=== PATIENT | male | born 1985 | race Caucasian/White ===

== ENCOUNTER 2021-12-06 12:01 | Outpatient (REF) | payer OTHER, SELFPAY ==
[2021-12-06 13:52] LABS: Hematocrit 45.2 % (42.0-52.0); Mean Corpuscular HGB Conc 35.4 g/dl (31.0-36.0); Mean Corpuscular Hemoglobin 30.5 pg (27.0-33.0); Mean Corpuscular Volume 86.1 fL (80.0-98.0); Mean Platelet Volume 9.6 fL (9.4-12.4); Platelet Count 208 X10*3/uL (160-400); Red Blood Count 5.25 X10*6/uL (4.60-5.80); Red Cell Distribution Width 12.2 % (11.0-16.0); White Blood Count 6.2 X10*3/uL (4.8-10.8)
[2021-12-06 14:01] LABS: Alanine Aminotransferase 20 U/L (0-40); Albumin Level 4.9 g/dL (3.5-5.0); Alkaline Phosphatase 67 U/L (39-117); Anion Gap 14 (12-20); Aspartate Amino Transferase 16 U/L (5-37); Bilirubin Total 1.1 mg/dL (0.0-1.0); Blood Urea Nitrogen 12 mg/dL (9-16); Calcium 10.2 mg/dL (8.4-10.2); Carbon Dioxide 29 mmol/L (22-29); Chloride 102 mmol/L (96-108); Cholesterol 202 mg/dL; Estimated Glomerular Filt Rate > 60; Glucose Fasting 92 mg/dL (60-99); HDL Cholesterol 35 mg/dL; LDL Cholesterol Calculated 125 mg/dl; Magnesium 2.1 mg/dL (1.6-2.6); Potassium 4.5 mmol/L (3.3-5.1); Sodium 140 mmol/L (135-145); Total Protein 7.4 g/dL (6.5-8.0); Triglycerides 213 mg/dL
[2021-12-06 14:24] LABS: TSH reflex Free T4 1.33 uIU/mL (0.32-4.0)
[2021-12-06 14:45] LABS: Folate 18.5 ng/mL (> or = 4.0); Vitamin B12 258 pg/mL (200-900)
== END 2021-12-06 12:02 | disposition home or self-care (01) ==
LOC: HO.HMGCLDS 12:01
PROVIDERS: Visit Provider Internal Medicine
DX: Z00.00 Encounter for general adult medical examination without abnormal findings (principal); M54.50 Low back pain, unspecified; M79.659 Pain in unspecified thigh
CPT/HCPCS: 36415; 80053; 80061; 82607; 82746; 83735; 84443; 85027

== ENCOUNTER 2024-03-14 14:01 | Outpatient (AMB) | payer OTHER, SELFPAY ==
[2024-03-14 14:23] VITALS: BP 120/78; PULSE 59; O2SAT 98; BMI 30.6
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
== END 2024-03-14 15:28 | disposition home or self-care (01) ==
PROVIDERS: PCP Internal Medicine; Visit Provider Internal Medicine
DX: Z00.00 Encounter for general adult medical examination without abnormal findings (principal); M25.511 Pain in right shoulder; K22.2 Esophageal obstruction; M54.2 Cervicalgia
CPT/HCPCS: 99396

== ENCOUNTER 2024-06-03 10:45 | Outpatient (REF) | payer OTHER, SELFPAY | END 2024-06-03 10:46 | disposition home or self-care (01) | LOC: HO.HMGCX 10:45 | PROVIDERS: PCP Internal Medicine; Visit Provider Internal Medicine | DX: M25.511 Pain in right shoulder (principal); M54.2 Cervicalgia | CPT/HCPCS: 72040; 73030 ==

== ENCOUNTER 2024-12-08 12:15 | Outpatient (AMB) | payer OTHER, SELFPAY ==
--- NOTE | 2024-12-08 12:40 | MHC.OFFWIV ---
Intake Vital Signs 12/08/24 12:43 Height 5 ft 9 in Weight 204 lb BMI 30.1 BP 124/82 Blood Pressure Location Rt brachial Position Sitting Pulse 83 Pulse Source Pulse Oximeter Temp 98.1 F Temp Source Oral Pulse Oximetry (%) 98 Oxygen Delivery Method Room Air Intake Visit Reasons: EP rash not improving with prednisone/benadryl Intake Note: Patient here for rash on chest and back that has been present for about a week or so. Patient Tobacco Use Status: Never used Tobacco Allergies No Known Allergies Allergy (Verified 12/08/24 12:52) Do you need a note to return to daycare/school/sports/work: Yes HPI HPI Comments History of Present Illness Details History of Present Illness - The patient is a 39 year old male presenting with an itchy rash x 3 days. - The patient reports abnormal fatigue and dizziness for 2-3 days prior to rash development. Noticed his urine was dark that day. - Patient denies new medication use, antibiotics, NSAIDS, or other dietary changes. Does not drink alcohol. - Went to an Urgent Care, where he was told exam was normal, little fluid in left ear which could have caused the dizzyines. The next AM, 2 days ago, the rash broke out. He went to [facility] ED 2 days ago. - Later that day, he went to the gym and utilizing a steam room. Denies any extreme weight lifting or very strenuous workout. - Emergency department findings included elevated bilirubin and liver enzymes, and neutrophil levels. Liver US was normal and pt was told to follow up with his PCP. - Previous management included every 4 hours 25mg Benadryl, and 50mg prednisone x 5 days, he is on day 2 with no improvement in the rash or itching. - Despite current medications, pruritus persists; the sensation is described as sunburn-like and uncomfortable. Physical Exam General: Cooperative, healthy appearing, comfortable, no acute distress and well developed Orientation: Patient oriented x3 Limitations: No limitations Head: Normal to inspection Ears: Hearing grossly normal bilaterally Nose: Normal External nose present Face and sinus: Normal facial exam Eyes: Appearance normal, both eyes and all related structures; no scleral icterus Neck: Normal visual inspection and Yes full ROM Respiratory: Normal respiratory effort and able to speak in complete sentences. Skin: neck, chest, back, BL LE and BL UE has macular rash, slightly warm, no papules, vesicles or ecchymosis. no jaundice Neuro: Patient oriented x3 Extremities: Normal to inspection [facility] Medical History Paresthesia of bilateral legs Lower back pain Thigh pain Inguinal hernia Umbilical hernia Annual physical exam Allergic rhinitis Eosinophilic esophagitis Surgical History History of hernia surgery Family History Father No problems noted. Mother Heart attack Sister Substance use disorder Social History Housing: House Patient Tobacco Use Status: Never used Tobacco e-Cigarette/Vaping Use: Never Used Second Hand Smoke Exposure: Yes service: No Current occupational status: employed Cognitive needs: No Hearing needs: No Vision needs: No Review of Systems Const All systems reviewed & are unremarkable except as noted in HPI and below Physical Exam Vital Signs: Last Vital Signs Temp 98.1 F 12/08/24 12:43 Pulse 83 12/08/24 12:43 BP 124/82 12/08/24 12:43 Pulse Ox 98 12/08/24 12:43 Oxygen Delivery Method Room Air 12/08/24 12:43 BMI result Body Mass Index 30.1 Assessment & Plan Assessment & Plan (1) Elevated bilirubin: Code(s): R17 - Unspecified jaundice Plan Per records sent to us by [facility], the US in ED was normal but based on the patients dark urine, sudden elevated bili of 3.8 (and lft's) and intense pruritus, and pred/benadryl not working at all, suspect cholestasis, will order CT abd/pelvis and start on bile acid sequestrant. Patient does have follow up with his PCP on 12/13. After a long discussion, he did think that the prednisone might be helping a little bit so he wants to continue taking that medication. Orders: Orders CT abdomen pelvis w IV con Today R17 - Unspecified jaundice Medications: New hydroxyzine HCl 25 mg PO Q8H PRN 30 tabs 0RF itching cholestyramine (with sugar) 4 gram administer w/meal; avoid other meds within 1hr before or 4-6hr after dose 4 grams PO TID 368.76 grams 0RF Coding Level of Care Code Est Pt Level 4 (69672) Diagnoses Elevated bilirubin R17
[2024-12-08 12:43] VITALS: BP 124/82; PULSE 83; TEMP 36.7; O2SAT 98; BMI 30.1
--- OUTSIDE RECORDS SUMMARY | 2024-12-08 13:08 | XMS_ITS | Clinical Summary ---
Author Organization [facility] Address [address] [place] [address] Phone Care Team Providers Care Basket Sorter Name Role Phone Taylor Brownlee MD Primary Care Provider [phone] Allergies Active Allergy Reactions Criticality Noted Date Comments Egg Cough Low 09/09/2017 Other reaction(s): Cough Medications predniSONE (DELTASONE) 50 mg tablet Take 1 tablet (50 mg total) by mouth 1 (one) time each day for 5 days. 5 each 12/06/2024 5 Active Active Problems No known active problems Encounters Date Type Department Care Team Description 12/06/2024 7:32 AM EDT - 12/06/2024 11:46 AM EDT [facility] Emergency [address] [place] [address] Hardy Ingram MD Rash (Primary Dx); Abnormal liver enzymes; Viral illness; Weakness Discharge Disposition: Home or Self Care from Last 3 Months Surgical History Surgery Date Site/Laterality Comments UPPER GASTROINTESTINAL ENDOSCOPY PROCEDURE:UPPER GASTROINTESTINAL ENDOSCOPY;COMMENT:last one 3-4 years ago for difficulty swallowing UPPER GASTROINTESTINAL ENDOSCOPY 06/30/2016 N/A PROCEDURE:UPPER GASTROINTESTINAL ENDOSCOPY;COMMENT:Procedure: UPPER ENDOSCOPY-EGD; Surgeon: Markel Villanueva MD; Location: [facility] ENDOSCOPY; Service: Gastroenterology; Laterality: N/A; WISDOM TOOTH EXTRACTION 2005 PROCEDURE:WISDOM TOOTH EXTRACTION;COMMENT:all four HERNIA REPAIR 04/19/2021 Left PROCEDURE:INGUINAL HERNIA REPAIR;COMMENT:Procedure: LAPAROSCOPY REPAIR HERNIA INGUINAL; Surgeon: Denis Infante MD; Location: [facility] SURGERY; Service: General; Laterality: Left; Medical History Medical History Date Comments Eosinophilic esophagitis 2010 DX:Eosi nophilic esophagitis Family History Medical History Relation Name Comments Breast cancer Mother Coronary artery disease Mother Heart attack Mother Relation Name Status Comments Mother Social History Tobacco Use Types Packs/Day Years Used Date Smoking Tobacco: Never Smokeless Tobacco: Never Alcohol Use Standard Drinks/Week Comments No 0 (1 standard drink = 0.6 oz pur e alcohol) Sex and Gender Information Value Date Recorded Sex Assigned at Male 12/06/2024 7:34 AM EDT Legal Sex Male 9:47 AM EST Gender Identity Male 12/06/2024 7:34 AM EDT Sexual Orientation Choose not to disclose 2024 7:34 AM EDT Obstetrics History Last Filed Vital Signs Vital Sign Reading Time Taken Comments Blood Pressure 126/89 12/06/2024 11:23 AM EDT Pulse 72 12/06/2024 11:23 AM EDT Temperature 37.4 ??C (99.4 ??F) 12/06/2024 11:23 AM E DT Respiratory Rate 17 12/06/2024 11:23 AM EDT Oxygen Saturation 96% 12/06/2024 11:23 AM EDT Inhaled Oxygen Concentration - - Weight 90.7 kg (200 lb) 12/06/2024 7:29 AM EDT Height 175.3 cm (5' 9 ) 12/06/2024 7:29 AM EDT Body Mass Index 29.53 12/06/2024 7:29 AM EDT Plan of Treatment Health Maintenance Due Date Last Done Comments DTaP,Tdap,and Td Vaccines (1 - Tdap) 01/13/2003 Hepatitis B Vaccines (1 of 3 - 19+ 3-dose series) 01/13/2003 Cholesterol Screening (Lipid Panel) 06/24/2022 Depression Screening 06/24/2022 HIV Screening 06/24/2022 Hepatitis C Screening 06/24/2022 Social Influencers of Health Screening 06/24/2022 COVID-19 Vaccine (3 - 2024-2 5 season) 2024 01/21/2021, 12/30/2020 Influenza Vaccine (Season Ended) 2025 HIB Vaccines Aged Out No longer eligi ble based on patient's age to complete this topic HPV Vaccines Aged Out No longer eligi ble based on patient's age to complete this topic Hepatitis A Vaccines Aged Out No long er eligible based on patient's age to complete this topic IPV Vaccines Aged Out No longer eligi ble based on patient's age to complete this topic MMR Vaccines Aged Out No longer eligi ble based on patient's age to complete this topic Meningococcal ACWY Vaccine Aged Out N o longer eligible based on patient's age to complete this topic Meningococcal B Vaccine Aged Out No l onger eligible based on patient's age to complete this topic Pneumococcal Vaccine: Pediatrics (0 to 5 Years) and At-Risk Patients (6 to 64 Years) Aged Out No longer eligible b ased on patient's age to complete this topic RSV Immunization Patients Under 20 months Aged Out No longer eligible b ased on patient's age to complete this topic Varicella Vaccines Aged Out No longer eligible based on patient's age to complete this topic Medical Devices Implanted Type Area Imaging Scheduler Device Identifier Shelf Expiration Date Model / Serial / Lot Mesh 3d Max 4.3x6.3 Lft Lrg Dimensional Prefrm Lft Ster N Crba-Davl [id number] Implanted:Qty: 1 on 04/19/2021 by Denis Infante MD Implants Left: Inguinal CR BARD - DAVOL DIV 11/21/2025 [id number] / / [id number] Procedures Procedure Name Priority Date/Time Associated Diagnosis Comments US ABDOMEN LIMITED STAT 12/06/2024 10 :38 AM EDT URINALYSIS WITH REFLEX MICROSCOPIC STAT 12/06/2024 9:10 AM EDT URINALYSIS WITH REFLEX MICROSCOPIC STAT 12/06/2024 9:10 AM EDT BASIC METABOLIC PANEL STAT 12/06/2024 9:05 AM EDT CBC WITH AUTO DIFFERENTIAL STAT 12/06/2024 7:47 AM EDT COMPREHENSIVE METABOLIC PANEL STAT 12/06/2024 7:47 AM EDT CBC AND DIFFERENTIAL STAT 12/06/2024 7:47 AM EDT from Last 3 Months Results * US Abdomen Limited (12/06/2024 10:38 AM EDT) Anatomical Region Laterality Modality Body Ultrasound 12/06/2024 10:4 8 AM EDT Impressions 12/06/2024 10:53 AM EDT Unremarkable right upper quadrant abdominal ultrasound. Report reviewed and signed by : Dr. Olvin Galvez on 12/06/2024 10:53 AM. Workstation Name - [id number] -------- FINAL REPORT -------- Dictated By: Olvin Galvez Dictated Date: 12/06/2024 10:48 ET Assigned Physician: Olvin Galvez Reviewed and Electronically Signed By: Olvin Galvez Signed Date: 12/06/2024 10:53 ET Workstation ID: [id number] Transcribed By: Self Edit Transcribed Date: 12/06/2024 10:48 ET Narrative 12/06/2024 10:53 AM EDT EXAM: US ABDOMEN LIMITED CLINICAL HISTORY: 39 years Male ??Elevated liver enzymes TECHNIQUE: Multiple ultrasound images of the right upper quadrant of the abdomen were obtained and submitted for interpretation. COMPARISON: None. FINDINGS: PANCREAS Visualized portions of the pancreas are unremarkable. LIVER The liver measures 15.8 cm in length. There are no focal lesions in the images obtained. There is normal echogenicity. There is normal hepatopetal flow present in the portal vein. BILIARY SYSTEM The gallbladder is not distended. There is no gallbladder wall thickening and the wall measures 3 mm in thickness. There are no gallstones. The common bile duct measures 5 mm in diameter. RIGHT KIDNEY: The right kidney measures 13 cm. There is normal parenchymal echotexture. There is no evidence for nephrolithiasis in the images obtained. There is no evidence of hydronephrosis in the images obtained. There are no cystic masses in the images obtained. Procedure Note Olvin Galvez MD - 12/06/2024 EXAM: US ABDOMEN LIMITED CLINICAL HISTORY: 39 years Male Elevated liver enzymes TECHNIQUE: Multiple ultrasound images of the right upper quadrant of theabdomen were obtained and submitted for interpretation. COMPARISON: None. FINDINGS: PANCREAS Visualized portions of the pancreas are unremarkable. LIVER The liver measures 15.8 cm in length. There are no focal lesions in the images obtained. There is normal echogenicity. There is normal hepatopetal flow present in the portal vein. BILIARY SYSTEM The gallbladder is not distended. There is no gallbladder wall thickening and the wall measures 3 mm inthickness. There are no gallstones. The common bile duct measures 5 mm in diameter. RIGHT KIDNEY: The right kidney measures 13 cm. There is normal parenchymal echotexture. There is no evidence for nephrolithiasis in the images obtained. There is no evidence of hydronephrosis in the images obtained. There are no cystic masses in the images obtained. IMPRESSION: Unremarkable right upper quadrant abdominal ultrasound. Report reviewed and signed by : Dr. Olvin Galvez on 12/06/2024 10:53 AM.Workstation Name - [id number] -------- FINAL REPORT -------- Dictated By: Olvin Galvez Dictated Date: 12/06/2024 10:48 ET Assigned Physician: Olvin Galvez Reviewed and Electronically Signed By: Olvin Galvez Signed Date: 12/06/2024 10:53 ET Workstation ID: [id number] Transcribed By: Self Edit Transcribed Date: 12/06/2024 10:48 ET us Hardy Ingram MD IMG US PROCEDURES Final Result * Urinalysis with reflex microscopic (12/06/2024 9:10 AM EDT) Color, Urine Yellow Colorless, Yellow LAB URINALYSIS - AUTOMATED METHOD 12/06/2024 9:15 AM EDT [facility] Clarity, Urine Clear Clear LAB URINALYSIS - AUTOMATED METHOD [facility] [place] Urine 1.010 1.005 - 1.030 LAB URINALYSIS - AUTOMATED METHOD 12/06/2024 9:15 AM EDT [facility] pH, Urine 6.0 5.0 - 8.0 pH LAB URINALYSIS - AUTOMATED METHOD 12/06[facility]2024 [facility] Leukocytes, Urine Negative Negative WBCs/mcL LAB URINALYSIS - AUTOMATED METHOD 12/06/2024 9:15 AM [facility] Nitrite, Urine Negative Negative LAB URINALYSIS - AUTOMATED METHOD 12/06/2024 [facility] Protein, Urine Negative Negative mg/dL LAB URINALYSIS - AUTOMATED METHOD 12/06/2024 9:[facility] Glucose, Urine Negative Negative mg/dL LAB URINALYSIS - AUTOMATED METHOD 12/06/2024 9:15 AM [facility] Ketones, Urine Negative Negative mg/dL LAB URINALYSIS - AUTOMATED METHOD 12/06/2024 9:15 AM [facility] Blood, Urine Negative Negative mg/dL LAB URINALYSIS - AUTOMATED METHOD 12/06/2024 9:15 AM [facility] Urine Urine specimen obtained by clean catch procedure / Unknown Non-blood Collection / Unknown 12/06/2024 9:10 AM EDT 12/06/2024 9:11 AM EDT us Hardy Ingram MD LAB URINE ORDERABLES Final Resu lt [facility] [address] [place] [address], [place] [phone] * (ABNORMAL) Basic Metabolic Panel (BMP) (12/06/2024 9:05 AM EDT) Sodium 139 135 - 145 mmol/L LAB CHEMISTRY METHOD [facility] Potassium 4.1 3.5 - 5.1 mmol/L LAB CHEMISTRY METHOD 12/06/2024 9:37 AM [facility] Chloride 106 98 - 107 mmol/L LAB CHEMISTRY METHOD 12/06/2024 9:37 AM [facility] CO2 25 24 - 32 mmol/L LAB CHEMISTRY METHOD 12/06/2024 9:37 AM [facility] Anion Gap 8 5 - 14 LAB CHEMISTRY METHOD 12/06/2024 9:37 AM [facility] Glucose 123 70 - 199 mg/dL LAB CHEMISTRY METHOD 12/06/2024 9:37 AM [facility] BUN 7(L) 9 - 20 mg/dL LAB CHEMISTRY METHOD 12/06/2024 9:37 AM [facility] Creatinine 0.96 0.70 - 1.30 mg/dL LAB CHEMISTRY METHOD 12/06/2024 9:37 AM [facility] eGFR 102 >=60 mL/min/1. 73m2 LAB CHEMISTRY METHOD 12/06/2024 9:37 AM [facility] Comment:Calculation based on the Chronic Kidney Disease Epidemiology Collaboration (CKD-EPI) equation refit without adjustment for race. BUN/Creatinine Ratio 7.3(L) 12.0 - 20.0 LAB CHEMISTRY METHOD 12/06/2024 9:37 AM [facility] Calcium 8.7 8.4 - 10.2 mg/dL LAB CHEMISTRY METHOD 12/06/2024 9:37 AM [facility] Blood Venous blood specimen / Unknown Venipuncture / Unknown 12/06/2024 9:05 AM EDT 12/06/2024 9:07 AM EDT us Hardy Ingram MD LAB BLOOD ORDERABLES Final Resu lt [facility] [address] [place] [address], [place] [phone] * (ABNORMAL) CBC auto differential (12/06/2024 7:47 AM EDT) [facility] [place] [facility] WBC 5.7 4.0 - 10.5 K/mcL LAB HEMETOLOGY METHOD [facility]/06[facility]2024 [facility] RBC 5.27 4.70 - 6.00 M/mcL LAB HEMETOLOGY METHOD 12/06/2024 7:52 AM EDT [facility] Hemoglobin 16.1 13.5 - 18.0 g/dL LAB HEMETOLOGY METHOD 12/06/2024 7:[facility] Hematocrit 47.5 40.0 - 54.0 % LAB HEMETOLOGY METHOD 12/06/2024 7:52 [facility] MCV 90.1 78.0 - 100.0 FL LAB HEMETOLOGY METHOD 12/06/2024 7:52 [facility] MCH 30.6 25.0 - 33.0 pcg LAB HEMETOLOGY METHOD 12/06/2024 7:52 [facility] MCHC 33.9 32.0 - 36.0 g/dL LAB HEMETOLOGY METHOD 12/06/2024 7:52 AM [facility] RDW 13.2 12.1 - 17.7 % LAB HEMETOLOGY METHOD 12/06/2024 7:52 [facility] Platelets 171 150 - 450 K/mcL LAB HEMETOLOGY METHOD 12/06/2024 7:52 [facility] MPV 9.9 7.4 - 11.4 FL LAB HEMETOLOGY METHOD 12/06/2024 7:52 AM [facility] Neutrophils Relative 78.7(H) 44.0 - 74.0 % LAB HEMETOLOGY METHOD 12/06/2024 7:52 AM [facility] Lymphocytes Relative 13.0(L) 20.0 - 48.0 % LAB HEMETOLOGY METHOD 12/06/2024 7:52 AM [facility] Monocytes Relative 4.0 2.0 - 12.0 % LAB HEMETOLOGY METHOD 12/06/2024 7:52 AM [facility] Eosinophils Relative 3.2 0.0 - 6.0 % LAB HEMETOLOGY METHOD 12/06/2024 7:52 AM [facility] Basophils Relative 0.7 0.0 - 2.0 % LAB HEMETOLOGY METHOD 12/06/2024 7:52 AM [facility] Neutrophils Absolute 4.50 1.80 - 7.80 K/mcL LAB HEMETOLOGY METHOD 12/06/2024 7:52 AM [facility] Lymphocytes Absolute 0.74(L) 1.00 - 3.20 K/mcL LAB HEMETOLOGY METHOD 12/06/2024 7:52 AM [facility] Monocytes Absolute 0.23 0.00 - 0.80 K/mcL LAB HEMETOLOGY METHOD 12/06/2024 7:52 AM [facility] Eosinophils Absolute 0.18 0.00 - 0.50 K/mcL LAB HEMETOLOGY METHOD 12/06/2024 7:52 AM [facility] Basophils Absolute 0.04 0.00 - 0.20 K/mcL LAB HEMETOLOGY METHOD 12/06/2024 7:52 AM [facility] Blood Venous blood specimen / Unknown Venipuncture / Unknown 12/06/2024 7:47 AM EDT 12/06/2024 7:49 AM EDT us Hardy Ingram MD LAB BLOOD ORDERABLES Final Resu lt [facility] [address] [place] [address], [place] [phone] * (ABNORMAL) Comprehensive metabolic panel (12/06/2024 7:47 AM EDT) Sodium 136 135 - 145 mmol/L LAB CHEMISTRY METHOD 12/06[facility]2024 8[facility]31 [facility] Potassium 5.8(H) 3.5 - 5.1 mmol/L LAB CHEMISTRY METHOD 12/06/2024 8:31 AM [facility] Comment:Moderate Hemolysis m ay affect test result(s). Chloride 103 98 - 107 mmol/L LAB CHEMISTRY METHOD 12/06/2024 8:31 AM [facility] CO2 24 24 - 32 mmol/L LAB CHEMISTRY METHOD 12/06/2024 8:31 [facility] Anion Gap 9 5 - 14 LAB CHEMISTRY METHOD 12/06/2024 8:31 AM [facility] Glucose 132 70 - 199 mg/dL LAB CHEMISTRY METHOD 12/06/2024 8:31 AM [facility] BUN 8(L) 9 - 20 mg/dL LAB CHEMISTRY METHOD 12/06/2024 8:31 AM [facility] Creatinine 0.99 0.70 - 1.30 mg/dL LAB CHEMISTRY METHOD 12/06/2024 8:31 AM [facility] eGFR 99 >=60 mL/min/1. 73m2 LAB CHEMISTRY METHOD 12/06/2024 8:31 AM [facility] Comment:Calculation based on the Chronic Kidney Disease Epidemiology Collaboration (CKD-EPI) equation refit without adjustment for race. BUN/Creatinine Ratio 8.1(L) 12.0 - 20.0 LAB CHEMISTRY METHOD 12/06/2024 8:31 [facility] Calcium 9.5 8.4 - 10.2 mg/dL LAB CHEMISTRY METHOD 12/06/2024 8:31 AM [facility] AST (SGOT) 193(H) 5 - 40 unit/L LAB CHEMISTRY METHOD 12/06/2024 8:31 AM [facility] Comment:Moderate Hemolysis m ay affect test result(s). ALT (SGPT) 424(H) 7 - 52 unit/L LAB CHEMISTRY METHOD 12/06/2024 8:31 AM [facility] Alkaline Phosphatase 287(H) 34 - 104 unit/L LAB CHEMISTRY METHOD 12/06/2024 8:31 AM [facility] Total Protein 7.6 6.4 - 8.5 g/dL LAB CHEMISTRY METHOD 12/06/2024 8:31 AM [facility] Albumin 4.8 3.5 - 5.0 g/dL LAB CHEMISTRY METHOD 12/06/2024 8:31 AM [facility] Total Bilirubin 3.6(H) 0.3 - 1.0 mg/dL LAB CHEMISTRY METHOD 12/06/2024 8:31 AM [facility] Blood Venous blood specimen / Unknown Venipuncture / Unknown 12/06/2024 7:47 AM EDT 12/06/2024 7:49 AM EDT us Hardy Ingram MD LAB BLOOD ORDERABLES Final Resu lt [facility] [address] [place] [address], [place] [phone] from Last 3 Months Insurance [id number] Care Teams Basket Sorter Relationship Specialty Start Date End Date Taylor Brownlee MD [address] [place] [address] PCP - General Sulfur Chloride Operator 03/13/21
--- OUTSIDE RECORDS SUMMARY | 2024-12-08 13:08 | XMS_ITS | Encounter Summary ---
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 Seen at told he has fluid in ears. Rash Pt woke this morning with full body rash. Denies new soaps, detergents... Encounter Details Date Type Department Care Team (Late st Contact Info) Description 12/06/2024 7:32 AM EDT - 12/06/2024 11:46 AM EDT Emergency [facility] Emergency [address] [place] [id number] Hardy Ingram MD [address] [place] [address] Rash (Primary Dx); Abnormal liver enzymes; Viral illness; Weakness Discharge Disposition: Home or Self Care Social History Tobacco Use Types Packs/Day Years [...] not to disclose 2024 7:34 AM EDT documented as of this encounter Last Filed Vital Signs Vital Sign Reading [...] Mass Index 29.53 12/06/2024 7:29 AM EDT documented in this encounter Discharge Instructions * Attachments The following attachments cannot be sent through Care Everywhere. * Rash (Mauritian) * Viral Infections (Mauritian) * LFTs (Liver Function Tests) (Mauritian) documented in this encounter Medications at Time of Discharge predniSONE (DELTASONE) 50 mg tablet Take 1 tablet (50 mg total) by mouth 1 (one) time each day for 5 days. 5 each 12/06/2024 12/11/2024 documented as of this encounter Ordered Prescriptions Prescription Sig Dispense Quantity Refills Last Filled Start Date End Date predniSONE (DELTASONE) 50 mg tablet Take 1 tablet (50 mg total) by mouth 1 (one) time each day for 5 days. 5 each 12/06/2024 12/11/2024 documented in this encounter Discharge Disposition Disposition Code Departure Means Destination Comment s Home or Self Care documented in this encounter Progress Notes * Hardy Ingram MD - 12/06/2024 7:23 AM EDT Images from the original note were not included. EMERGENCY MEDICINE PROVIDER NOTE Patient Name: Clifford Garcia : 1985 Chief Complaint: Chief Complaint Patient presents with ??? Dizziness Pt c/o dizziness x1 week. Seen at told he has fluid in ears. ??? Rash Pt woke this morning with full body rash. Denies new soaps, detergents... History of Present Illness: 39 y.o. male presents to the Emergency Department, accompanied by , with generalized body rash.He states he has been unwell for about a week with general malaise and weakness. He also had vertigo and went to urgent care where he tested negative for COVID, flu and rapid strep. He states the rash started last night and has involved his whole body. There is no history of contact, new medications, new soaps or detergents. He denies difficulty swallowing or breathing. Past Medical History: Diagnosis Date ??? Eosinophilic esophagitis 2010 DX:Eosinophilic esophagitis Past Surgical History: Procedure Laterality Date ??? HERNIA REPAIR Left 04/19/2021 PROCEDURE:INGUINAL HERNIA REPAIR;COMMENT:Procedure: LAPAROSCOPY REPAIR HERNIA INGUINAL; Surgeon: Denis Infante MD; Location: [facility] SUR[facility]ERY; Service: General; Laterality: Left; ??? UPPER GASTROINTESTINAL ENDOSCOPY PROCEDURE:UPPER GASTROINTESTINAL ENDOSCOPY;COMMENT:last one 3-4 years ago for difficulty swallowing ??? UPPER GASTROINTESTINAL ENDOSCOPY N/A 06/30/2016 PROCEDURE:UPPER GASTROINTESTINAL ENDOSCOPY;COMMENT:Procedure: UPPER ENDOSCOPY- EGD; Surgeon: Markel Villanueva MD; Location: [facility] ENDOSCOPY; Service: Gastroenterology; Laterality: N/A; ??? WISDOM TOOTH EXTRACTION 2005 PROCEDURE:WISDOM TOOTH EXTRACTION;COMMENT:all four Family History Problem Relation Name Age of Onset ??? Heart attack Mother ??? Coronary artery disease Mother ??? Breast cancer Mother Social History Tobacco Use ??? Smoking status: Never ??? Smokeless tobacco: Never Substance Use Topics ??? Alcohol use: No ??? Drug use: No Review of Systems: Pertinent positive and negatives as documented in the HPI. Physical Exam: Vitals: 12/06/24 1123 BP: 126/89 Pulse: 72 Resp: 17 Temp: 37.4 ??C (99.4 ??F) SpO2: 96% Physical Exam Vitals and nursing note reviewed. Constitutional: Appearance: Normal appearance. HENT: Head: Normocephalic and atraumatic. Mouth/Throat: Mouth: Mucous membranes are moist. Eyes: Extraocular Movements: Extraocular movements intact. Cardiovascular: Rate and Rhythm: Normal rate and regular rhythm. Pulses: Normal pulses. Heart sounds: Normal heart sounds. Pulmonary: Effort: Pulmonary effort is normal. Breath sounds: Normal breath sounds. Abdominal: Palpations: Abdomen is soft. Tenderness: There is no abdominal tenderness. Musculoskeletal: Cervical back: Neck supple. Skin: General: Skin is warm and dry. Findings: Rash present. Comments: Diffuse urticarial rash all over body Neurological: General: No focal deficit present. Mental Status: He is alert and oriented to person, place, and time. ED Course: Procedures US Abdomen Limited Final Result Unremarkable right upper quadrant abdominal ultrasound. Report reviewed and signed by : Dr. Olvin Galvez on 12/06/2024 10:53 AM. Workstation Name - [id number] -------- FINAL REPORT -------- Dictated By: Olvin Galvez Dictated Date: 12/06/2024 10:48 ET Assigned Physician: Olvin Galvez Reviewed and Electronically Signed By: Olvin Galvez Signed Date: 12/06/2024 10:53 ET Workstation ID: [id number] Transcribed By: Self Edit Transcribed Date: 12/06/2024 10:48 ET Labs Reviewed COMPREHENSIVE METABOLIC PANEL - Abnormal Result Value Sodium 136 Potassium 5.8 (*) Chloride 103 CO2 24 Anion Gap 9 Glucose 132 BUN 8 (*) Creatinine 0.99 eGFR 99 BUN/Creatinine Ratio 8.1 (*) Calcium 9.5 AST (SGOT) 193 (*) ALT (SGPT) 424 (*) Alkaline Phosphatase 287 (*) Total Protein 7.6 Albumin 4.8 Total Bilirubin 3.6 (*) CBC WITH AUTO DIFFERENTIAL - Abnormal WBC 5.7 RBC 5.27 Hemoglobin 16.1 Hematocrit 47.5 MCV 90.1 MCH 30.6 MCHC 33.9 RDW 13.2 Platelets 171 MPV 9.9 Neutrophils Relative 78.7 (*) Lymphocytes Relative 13.0 (*) Monocytes Relative 4.0 Eosinophils Relative 3.2 Basophils Relative 0.7 Neutrophils Absolute 4.50 Lymphocytes Absolute 0.74 (*) Monocytes Absolute 0.23 Eosinophils Absolute 0.18 Basophils Absolute 0.04 BASIC METABOLIC PANEL - Abnormal Sodium 139 Potassium 4.1 Chloride 106 CO2 25 Anion Gap 8 Glucose 123 BUN 7 (*) Creatinine 0.96 eGFR 102 BUN/Creatinine Ratio 7.3 (*) Calcium 8.7 URINALYSIS WITH REFLEX MICROSCOPIC - Normal Color, Urine Yellow Clarity, Urine Clear Specific Railroad Urine 1.010 pH, Urine 6.0 Leukocytes, Urine Negative Nitrite, Urine Negative Protein, Urine Negative Glucose, Urine Negative Ketones, Urine Negative Blood, Urine Negative CBC AND DIFFERENTIAL Narrative: The following orders were created for panel order CBC and differential. Procedure Abnormality Status --------- ------ CBC auto differential[[id number]] Abnormal Final result Please view results for these tests on the individual orders. URINALYSIS WITH REFLEX MICROSCOPIC Narrative: The following orders were created for panel order Urinalysis with reflex microscopic ([id number]). Procedure Abnormality Status --------- ------ Urinalysis with reflex ...[[id number]] Normal Final result Please view results for these tests on the individual orders. Medical Decision Making 39-year-old male presents with generalized body rash for 1 day consistent with urticarial rash. Differential diagnosis includes contact viral exanthem given the preceding prodromal symptoms, acute hypersensitivity reaction, atopic//eczematous dermatitis. History and exam findings not consistent with dangerous etiologies of rash such as SJS/TEN, or secondary dangerous causes such as petechial rashes from thrombocytopenia or rickettsial infections. Plan at this time is to treat symptomatically, instruct to follow up with PCP or derm PRN. Plan: Basic labs, H1/H2 blockers, steroids, close hemodynamic monitoring, serial reassessment Patient was started on IV fluid hydration with normal saline, and given 25 mg IV Benadryl, 20 mg IVPepcid and 125 mg IV Solu-Medrol Lab data interpreted by me CBC shows no significant leukocytosis, anemia or thrombocytopenia. BMP significant for hyperkalemia with potassium 5.8 but specimen was slightly hemolyzed so repeat BMP ordered LFTs were abnormal with AST 193, ALT 424, alkaline phosphatase 287 and total bili 3.6 UA shows no evidence of abnormal chemistries, cells, or bacteria. Repeat BMP normal with potassium 4.1 Abdominal ultrasound was ordered to evaluate the hepatobiliary tree given the abnormal LFTs. The right upper quadrant ultrasound was interpreted by me as negative. No discrepancy with the report by the radiologist On reevaluation, patient still has diffuse rash but overall feels better. No indication for acute hospitalization no escalation of care. Will discharge home with close outpatient follow-up Amount and/or Complexity of Data Reviewed Independent Historian: spouse Details: Case discussed with at bedside External Data Reviewed: labs and notes. Details: I reviewed records from ED visit a year ago including labs and notes Labs: ordered. Decision-making details documented in ED Course. Radiology: ordered and independent interpretation performed. Clinical Impressions as of 12/06/24 1134 Rash Abnormal liver enzymes Viral illness Weakness Diagnoses: ICD-10-CM ICD-9-CM 1. Rash R21 782.1 2. Abnormal liver enzymes R74.8 790.5 3. Viral illness B34.9 079.99 4. Weakness R53.1 780.79 New Prescriptions PREDNISONE (DELTASONE) 50 MG TABLET Take 1 tablet (50 mg total) by mouth 1 (one) time each day for 5 days. Complexity Summary Category 1 Components - Tests, documents, or independent historians: [] Reviewed prior external records from a unique source(s) as described in my note [] Ordered unique test(s) [] Reviewed unique test(s) [] Discussed case with independent historian(s) as described in my note [] Considered specific lab(s), imaging, and/or treatment(s) which not may not have been ultimately pursued as described in my note Category 2 Components - Independent interpretation of tests: [] Independently interpreted outside testing/imaging ordered by another provider as described in mynote [] Independently interpreted EKG(s) as included in my note [] Independently interpreted lab(s) as included in my note [] Independently interpreted xray(s) as included in my note [] Independently interpreted CT(s) as included in my note [] Independently interpreted ultrasound and/or POCUS as included in my note [] Independently interpreted rhythm strip(s) as included in my note Category 3 Components - Discussion of management and/or test results: [] Consultation - Discussed management and/or test interpretation with external health long term care phlebotomist [] Admission/Observation - Patient's presentation, diagnostics, and/or treatment was discussed withthe admitting provider Risk Summary High: [x] Decisions made regarding hospitalization or escalation of care [] CT scan with IV contrast performed [] Drug therapy requiring intensive monitoring for toxicity was utilized [] Parenteral controlled substances were administered [] Anticoagulation therapy administered [] High risk diagnostic/clinical decision support tool utilized [] Physical restraints utilized [] Decisions made regarding procedures performed that could classify as major surgery [] Decisions made regarding emergency major surgery [] Decisions made regarding elective major surgery with identified patient or procedure risk factors [] Decisions made to not resuscitate or to de-escalate care because of poor prognosis Moderate: [] Prescription drug management [] Administration of IV fluids [] Radiation exposure from CT scan, or head/neck/torso x-rays [] Diagnosis or treatment significantly limited by social determinants of health as described in mynote [] Rigid musculoskeletal immobilization applied [] Decisions made regarding procedures performed that could classify as minor surgery [] Decisions made regarding minor surgery with identified patient or procedure risk factors [] /pediatric OTC meds administered (Tylenol < 24 mo, Ibuprofen < 6 mo, Benadryl < 6yrs) Low: [] Radiation exposure from extremity x-rays [] Tera wrap and/or superficial dressing applied [] Pediatric OTC meds administered (Tylenol > 24 mo, Ibuprofen > 6 mo, Benadryl > 6 yrs) 12-Lead EKG Interpretation [] I independently interpreted the 12-lead EKG as documented in my note Rhythm Strip Interpretation [] I independently interpreted the rhythm strip as documented in my note Smoking Cessation Counseling [] I provided smoking cessation counseling as documented in my note ED Observation [] ED Observation services were provided as documented in my note Critical Care [] Critical care was provided as documented in my note Medication Assisted Treatment for Opioid Dependence [] I initiated Medication Assisted Treatment in the ED as documented in my note Please note that this chart has been created using speech recognition software and may contain errors related to that system, including errors in grammar, punctuation, and spelling. It may also include errors in words and phrases. If there are any questions or concerns, please feel free to contact me for clarification. Hardy Ingram MD 12/06/24 0858 Hardy Ingram MD 12/06/24 1006 Hardy Ingram MD 12/06/24 1134 Hardy Ingram MD 12/06/24 1134 documented in this encounter Plan of Treatment Not on file documented as of this encounter Procedures Procedure Name Priority Date/Time Associated Diagnosis Comments US ABDOMEN LIMITED STAT 12/06/2024 10 :38 AM EDT URINALYSIS WITH REFLEX MICROSCOPIC STAT 12/06/2024 9:10 AM EDT URINALYSIS WITH REFLEX MICROSCOPIC STAT 12/06/2024 9:10 AM EDT BASIC METABOLIC PANEL STAT 12/06/2024 9:05 AM EDT CBC WITH AUTO DIFFERENTIAL STAT 12/06/2024 7:47 AM EDT CBC AND DIFFERENTIAL STAT 12/06/2024 7:47 AM EDT COMPREHENSIVE METABOLIC PANEL STAT 12/06/2024 7:47 AM EDT documented in this encounter Results * US Abdomen Limited (12/06/2024 10:38 AM EDT) Anatomical Region Laterality Modality Body Ultrasound 12/06/2024 10:4 8 AM EDT Impressions 12/06/2024 10:53 AM EDT Unremarkable right upper quadrant abdominal ultrasound. Report reviewed and signed by : Dr. Olvin Galvez on 12/06/2024 10:53 AM. Workstation Name - [id number] -------- FINAL REPORT -------- Dictated By: Olvin Galvez Dictated Date: 12/06/2024 10:48 ET Assigned Physician: Olvin Galvez Reviewed and Electronically Signed By: Olvin Galvez Signed Date: 12/06/2024 10:53 ET Workstation ID: [id number] Transcribed By: Self Edit Transcribed Date: 12/06/2024 [...] Galvez on 12/06/2024 10:53 AM.Workstation Name - [id number] -------- FINAL REPORT -------- Dictated By: Olvin Galvez Dictated Date: 12/06/2024 10:48 ET Assigned Physician: Olvin Galvez Reviewed and Electronically Signed By: Olvin Galvez Signed Date: 12/06/2024 10:53 ET Workstation ID: [id number] Transcribed By: Self Edit Transcribed Date: 12/06/2024 10:48 ET us Hardy Ingram MD IMG US PROCEDURES Final Result * Urinalysis with reflex microscopic (12/06/2024 9:10 AM EDT) Color, Urine Yellow Colorless, Yellow LAB URINALYSIS - AUTOMATED METHOD 12/06/2024 9:15 AM [facility] Clarity, Urine Clear Clear LAB URINALYSIS - AUTOMATED METHOD 12/06/2024 9:15 AM [facility] Specific Railroad Urine 1.010 1.005 - 1.030 LAB URINALYSIS - AUTOMATED METHOD 12/06/2024 9:15 AM [facility] pH, Urine 6.0 5.0 - 8.0 pH LAB URINALYSIS - AUTOMATED METHOD 12/06/2024 9:15 AM [facility] Leukocytes, Urine Negative Negative WBCs/mcL LAB URINALYSIS - AUTOMATED METHOD 12/06/2024 9:15 AM [facility] Nitrite, Urine Negative Negative LAB URINALYSIS - AUTOMATED METHOD 12/06/2024 9:15 AM [facility] Protein, Urine Negative Negative mg/dL LAB URINALYSIS - AUTOMATED METHOD 12/06/2024 9:15 AM [facility] Glucose, Urine Negative Negative mg/dL LAB URINALYSIS - AUTOMATED METHOD 12/06/2024 9:15 AM [facility] Ketones, Urine Negative Negative mg/dL LAB URINALYSIS - AUTOMATED METHOD 12/06/2024 9:15 AM [facility] Blood, Urine Negative Negative mg/dL LAB URINALYSIS - AUTOMATED METHOD 12/06/2024 9:15 AM [facility] Urine Urine specimen obtained by clean catch procedure / Unknown Non-blood Collection / Unknown 12/06/2024 9:10 AM EDT 12/06/2024 9:11 AM EDT us Hardy Ingram MD LAB URINE ORDERABLES Final Resu lt [facility] [address] [place] [address], [place] [phone] * (ABNORMAL) Basic Metabolic Panel (BMP) (12/06/2024 9:05 AM EDT) Sodium 139 135 - 145 mmol/L LAB CHEMISTRY METHOD 12/06/2024 9:37 AM [facility] Potassium 4.1 3.5 - 5.1 mmol/L LAB CHEMISTRY METHOD 12/06/2024 9:37 AM [facility] Chloride 106 98 - 107 mmol/L LAB CHEMISTRY METHOD 12/06/2024 9:37 AM [facility] CO2 25 24 - 32 mmol/L LAB CHEMISTRY METHOD 12/06/2024 9:37 AM [facility] Anion Gap 8 5 - 14 LAB CHEMISTRY METHOD 12/06/2024 9:37 AM [facility] Glucose 123 70 - 199 mg/dL LAB CHEMISTRY METHOD 12/06/2024 9:37 AM [facility] BUN 7(L) 9 - 20 mg/dL LAB CHEMISTRY METHOD 12/06/2024 9:37 AM [facility] Creatinine 0.96 0.70 - 1.30 mg/dL LAB CHEMISTRY METHOD 12/06/2024 9:37 AM [facility] eGFR 102 >=60 mL/min/1. 73m2 LAB CHEMISTRY METHOD 12/06/2024 9:37 AM [facility] Comment:Calculation based on the Chronic Kidney Disease Epidemiology Collaboration (CKD-EPI) equation refit without adjustment for race. BUN/Creatinine Ratio 7.3(L) 12.0 - 20.0 LAB CHEMISTRY METHOD 12/06/2024 9:37 AM [facility] Calcium 8.7 8.4 - 10.2 mg/dL LAB CHEMISTRY METHOD 12/06/2024 9:37 AM EDT [facility] Blood Venous blood specimen / Unknown Venipuncture / Unknown 12/06/2024 9:05 AM EDT 12/06/2024 9:07 AM EDT us Hardy Ingram MD LAB BLOOD ORDERABLES Final Resu lt [facility] [address] [place] [address], [place] [phone] * (ABNORMAL) CBC auto differential (12/06/2024 7:47 AM EDT) WBC 5.7 4.0 - 10.5 K/mcL LAB HEMETOLOGY METHOD 12/06/2024 7:52 AM EDT [facility] RBC 5.27 4.70 - 6.00 M/[facility] LAB HEMETOLOGY METHOD 12/06/2024 7:52 AM [facility] Hemoglobin 16.1 13.5 - 18.0 g/dL LAB HEMETOLOGY METHOD 12/06/2024 7:52 AM [facility] Hematocrit 47.5 40.0 - 54.0 % LAB HEMETOLOGY METHOD 12/06/2024 7:52 AM [facility] MCV 90.1 78.0 - 100.0 FL LAB HEMETOLOGY METHOD 12/06/2024 7:52 AM [facility] MCH 30.6 25.0 - 33.0 pcg LAB HEMETOLOGY METHOD 12/06/2024 7:52 AM [facility] MCHC 33.9 32.0 - 36.0 g/dL LAB HEMETOLOGY METHOD 12/06/2024 7:52 AM [facility] RDW 13.2 12.1 - 17.7 % LAB HEMETOLOGY METHOD 12/06/2024 7:52 AM [facility] Platelets 171 150 - 450 K/mcL LAB HEMETOLOGY METHOD 12/06/2024 7:52 AM [facility] MPV 9.9 7.4 - 11.4 FL LAB HEMETOLOGY METHOD 12/06/2024 7:52 AM [facility] Neutrophils Relative 78.7(H) 44.0 - 74.0 % LAB HEMETOLOGY METHOD 12/06/2024 7:52 AM [facility] Lymphocytes Relative 13.0(L) 20.0 - 48.0 % LAB HEMETOLOGY METHOD 12/06/2024 7:52 AM [facility] Monocytes Relative 4.0 2.0 - 12.0 % LAB HEMETOLOGY METHOD 12/06/2024 7:52 AM [facility] Eosinophils Relative 3.2 0.0 - 6.0 % LAB HEMETOLOGY METHOD 12/06/2024 7:52 AM [facility] Basophils Relative 0.7 0.0 - 2.0 % LAB HEMETOLOGY METHOD 12/06/2024 7:52 AM [facility] Neutrophils Absolute 4.50 1.80 - 7.80 K/mcL LAB HEMETOLOGY METHOD 12/06/2024 7:52 AM [facility] Lymphocytes Absolute 0.74(L) 1.00 - 3.20 K/mcL LAB HEMETOLOGY METHOD 12/06/2024 7:52 AM [facility] Monocytes Absolute 0.23 0.00 - 0.80 K/mcL LAB HEMETOLOGY METHOD 12/06/2024 7:52 AM [facility] Eosinophils Absolute 0.18 0.00 - 0.50 K/mcL LAB HEMETOLOGY METHOD 12/06/2024 7:52 AM [facility] Basophils Absolute 0.04 0.00 - 0.20 K/mcL LAB HEMETOLOGY METHOD 12/06/2024 7:52 AM [facility] Blood Venous blood specimen / Unknown Venipuncture / Unknown 12/06/2024 7:47 AM EDT 12/06/2024 7:49 AM EDT us Hardy Ingram MD LAB BLOOD ORDERABLES Final Resu lt [facility] [address] [place] [address], [place] [phone] * (ABNORMAL) Comprehensive metabolic panel (12/06/2024 7:47 AM EDT) Sodium 136 135 - 145 mmol/L LAB CHEMISTRY METHOD 12/06/2024 8:31 AM [facility] Potassium 5.8(H) 3.5 - 5.1 mmol/L LAB CHEMISTRY METHOD 12/06/2024 8:31 AM [facility] Comment:Moderate Hemolysis m ay affect test result(s). Chloride 103 98 - 107 mmol/L LAB CHEMISTRY METHOD 12/06/2024 8:31 AM [facility] CO2 24 24 - 32 mmol/L LAB CHEMISTRY METHOD 12/06/2024 8:31 AM [facility] Anion Gap 9 5 - 14 LAB CHEMISTRY METHOD 12/06/2024 8:31 AM [facility] Glucose 132 70 - 199 mg/dL LAB CHEMISTRY METHOD 12/06/2024 8:31 AM [facility] BUN 8(L) 9 - 20 mg/dL LAB CHEMISTRY METHOD 12/06/2024 8:31 AM [facility] Creatinine 0.99 0.70 - 1.30 mg/dL LAB CHEMISTRY METHOD 12/06/2024 8:31 AM [facility] eGFR 99 >=60 mL/min/1. 73m2 LAB CHEMISTRY METHOD 12/06/2024 8:31 AM [facility] Comment:Calculation based on the Chronic Kidney Disease Epidemiology Collaboration (CKD-EPI) equation refit without adjustment for race. BUN/Creatinine Ratio 8.1(L) 12.0 - 20.0 LAB CHEMISTRY METHOD 12/06/2024 8:31 AM [facility] Calcium 9.5 8.4 - 10.2 mg/dL LAB CHEMISTRY METHOD 12/06/2024 8:31 AM [facility] AST (SGOT) 193(H) 5 - 40 unit/L LAB CHEMISTRY METHOD 12/06/2024 8:31 AM [facility] Comment:Moderate Hemolysis m ay affect test result(s). ALT (SGPT) 424(H) 7 - 52 unit/L LAB CHEMISTRY METHOD 12/06/2024 8:31 AM [facility] Alkaline Phosphatase 287(H) 34 - 104 unit/L LAB CHEMISTRY METHOD 12/06/2024 8:31 AM [facility] Total Protein 7.6 6.4 - 8.5 g/dL LAB CHEMISTRY METHOD 12/06/2024 8:31 AM [facility] Albumin 4.8 3.5 - 5.0 g/dL LAB CHEMISTRY METHOD 12/06/2024 8:31 AM [facility] Total Bilirubin 3.6(H) 0.3 - 1.0 mg/dL LAB CHEMISTRY METHOD 12/06/2024 8:31 AM [facility] Blood Venous blood specimen / Unknown Venipuncture / Unknown 12/06/2024 7:47 AM EDT 12/06/2024 7:49 AM EDT us Hardy Ingram MD LAB BLOOD ORDERABLES Final Resu lt [facility] [address] [place] [address], [place] [phone] documented in this encounter Visit Diagnoses Diagnosis Rash- Primary Rash and other nonspecific skin eruption Abnormal liver enzymes Viral illness Unspecified viral infection, in conditions classified elsewhere and of unspecified site Weakness Other malaise and fatigue documented in this encounter Administered Medications Inactive Administered Medications - up to 3 most recent administrations Medication Order MAR Action Action Date Dose Rate Site diphenhydrAMINE (BENADRYL) injection 25 mg 25 mg, intravenous, Once, On Thu12/06/24 at 0810, For 1 dose Given 12/06/2024 8:17 AM EDT 25 mg famotidine (PF) (PEPCID) injection 20 mg 20 mg, intravenous, Administer over 2 Minutes, Once, On Thu12/06/24 at 0810, For 1 dose Given 12/06/2024 8:17 AM EDT 20 mg methylPREDNISolone sodium succ (SOLU-Medrol) injection 125 mg 125 mg, intravenous, Once, On Thu12/06/24 at 0810, For 1 dose, Reconstitute each 125 mg vial with 2 mL sterile water for injection to a concentration of 62.5 mg/mL. Given 12/06/2024 8:17 AM EDT 125 mg ondansetron (PF) (ZOFRAN) injection 4 mg 4 mg, intravenous, Once, On Thu12/06/24 at 0737, For 1 dose Given 12/06/2024 7:49 AM EDT 4 mg sodium chloride 0.9 % bolus 1,000 mL 1,000 mL, intravenous, at 2,000 mL/hr, Administer over 30 Minutes, Once, On Thu12/06/24 at 0737, For 1 dose New Bag 12/06/2024 7:48 AM EDT 1,000 mL 2000 mL/hr documented in this encounter Active and Recently Administered Medications Times are shown in EDT. Scheduled Medication Order 12/04/2024 12/05/2024 12/06/2024 diphenhydrAMINE (BENADRYL) injection 25 mg (COMPLETED) 25 mg, intravenous, Once, On 12/06/24 at 0810, For 1 dose 0817 (Given - Provid er: Abdelrahman Mesa RN) famotidine (PF) (PEPCID) injection 20 mg (COMPLETED) 20 mg, intravenous, Administer over 2 Minutes, Once, On 12/06/24 at 0810, For 1 dose 0817 (Given - Provid er: Abdelrahman Mesa RN) methylPREDNISolone sodium succ (SOLU-Medrol) injection 125 mg (COMPLETED) 125 mg, intravenous, Once, On 12/06/24 at 0810, For 1 dose, Reconstitute each 125 mg vial with 2 mL sterile water for injection to a concentration of 62.5 mg/mL. 816 (Given - Provid er: Abdelrahman Mesa RN) ondansetron (PF) (ZOFRAN) injection 4 mg (COMPLETED) 4 mg, intravenous, Once, On 12/06/24 at 0737, For 1 dose 0749 (Given - Provid er: Abdelrahman Mesa RN) sodium chloride 0.9 % bolus 1,000 mL (COMPLETED) 1,000 mL, intravenous, at 2,000 mL/hr, Administer over 30 Minutes, Once, On 12/06/24 at 0737, For 1 dose 0748 (New Bag - Prov ider: Abdelrahman Mesa RN)0818 (Stopped - Provider: Abdelrahman Mesa RN) documented in this encounter Care Teams Air Valve Mechanic Relationship Specialty Start Date End Date Taylor Brownlee MD [address] [place] [address] PCP - General Associate Professor Of Geography 03/13/21 documented as of this encounter
--- OUTSIDE RECORDS SUMMARY | 2024-12-08 13:08 | XMS_ITS | Clinical Summary ---
Author Organization [facility] Address [address] [place] [address] Care Team Providers Care Testing Projects Administrator Name Role Phone Taylor Brownlee MD Primary Care Provider [phone] Allergies Active Allergy Reactions Criticality Noted Date Comments Egg-Derived Products Cough Low 09/09/2017 Medications Multiple Vitamin (MULTIVITAMIN ADULT PO) Take 1 tablet by mouth daily. Active triamcinolone (KENALOG) 0.1 % creamIndications :Allergic contact dermatitis, unspecified trigger Apply to affected areas on hands twice a day for 2-4 weeks 80 g 3 2 Active hydrocortisone (HYTONE) 2.5 % ointmentIndicati ons:Allergic contact dermatitis, unspecified trigger Apply 1-2 times daily to areas on the eyelids and face until next visit 30 g 1 2 Active Active Problems Problem Noted Date Diagnosed Date Food impaction of esophagus 09/09/2017 Overview (09/09/2017): Added automatically from request for surgery [id number] Social History Tobacco Use Types Packs/Day Years Used Date Smoking Tobacco: Never Assessed Sex and Gender Information Value Date Recorded Sex Assigned at Not on file Legal Sex Male 3:03 PM EST Gender Identity Not on file Sexual Orientation Not on file Last Filed Vital Signs Vital Sign Reading Time Taken Comments Blood Pressure 120/74 09/09/2017 8:50 PM EST Pulse 62 09/09/2017 8:50 PM EST Temperature 37.7 ??C (99.9 ??F) 09/09/2017 8:00 PM ES T Respiratory Rate 20 09/09/2017 8:50 PM EST Oxygen Saturation 97% 09/09/2017 8:50 PM EST Inhaled Oxygen Concentration - - Weight - - Height - - Body Mass Index - - Plan of Treatment Health Maintenance Due Date Last Done Comments Hepatitis C Virus Screening 1984 HIV Screening 01/13/1997 DTaP/Tdap/Td Vaccines (1 - Tdap) 01/13/2003 Hepatitis B Vaccines (1 of 3 - 19+ 3-dose series) 01/13/2003 COVID-19 Vaccine (3 - 2023-2 5 season) 2024 01/21/2021, 12/30/2020 Influenza Vaccine 02/24/2025 HPV Vaccines Aged Out No longer eligi ble based on patient's age to complete this topic Pneumococcal Vaccine: Pediatric (0-5 Years) and At-Risk Patients (6 to 49 Years) Aged Out No longer eligible b ased on patient's age to complete this topic Insurance [facility] Care Teams Testing Projects Administrator Relationship Specialty Start Date End Date Taylor Brownlee MD [address] [place] [id number] PCP - General 07/31/21
== END 2024-12-08 13:46 | disposition home or self-care (01) ==
PROVIDERS: PCP Internal Medicine; Visit Provider Physician Assistant
DX: R17 Unspecified jaundice (principal)

== ENCOUNTER → 2024-12-08 12:15 | Outpatient (BNVA) | payer OTHER, SELFPAY | PROVIDERS: PCP Internal Medicine; Visit Provider Physician Assistant | DX: Z13.89 Encounter for screening for other disorder (principal) ==

== ENCOUNTER 2024-12-09 10:54 | Outpatient (REF) | payer OTHER, SELFPAY ==
--- OUTSIDE RECORDS SUMMARY | 2024-12-09 11:26 | XMS_ITS | Clinical Summary ---
Author Organization [facility] Address [address] [place] [address] Care Team Providers Care Airline Station Agent Name Role Phone Taylor Brownlee MD Primary Care Provider [phone] Allergies Active Allergy Reactions Criticality Noted Date [...] (09/09/2017): Added automatically from request for surgery [id number] Social History Tobacco Use Types Packs/Day Years [...] patient's age to complete this topic Insurance [facility] Care Teams Airline Station Agent Relationship Specialty Start Date End Date Taylor Brownlee MD [address] [place] [address] PCP - General 07/31/21
--- OUTSIDE RECORDS SUMMARY | 2024-12-09 11:26 | XMS_ITS ---
[facility] Results Test Name/Text Value Interpretation Date Range Source Hgb Ur Ql Negative [id number] - [facility] Glucose Ur Ql Negative [id number] - [facility] Color Ur Yellow [id number] - [facility] Clarity Ur Clear [id number] - [facility] Nitrite Ur Ql Negative [id number] - [facility] pH Ur 6pH [id number] 5 - 8 [facility] Prot Ur Strip-mCnc Negative [id number] - [facility] Ketones Ur-mCnc Negative [id number] - [facility] Sp Gr Ur 1.01 [id number] 1.005 - 1.03 [facility] Leukocyte esterase Ur Ql Strip Negative [id number] - [facility] Glucose SerPl-mCnc 123mg/dL [id number] 70 - 199 [facility] eGFRcr SerPlBld CKD-EPI 202 102mL/min/1.73m2 [id number] - [facility] Creat SerPl-mCnc 0.96mg/dL [id number] 0.7 - 1.3 [facility] Potassium SerPl-sCnc 4.1mmol/L [id number] 3.5 - 5.1 [facility] Anion Gap SerPl Calc-sCnc 8 [id number] 5 - 14 [facility] BUN/Creat SerPl 7.3 Below low normal [id number] 12 - 20 [facility] BUN SerPl-mCnc 7mg/dL Below low normal [id number] 9 - 2 0 [facility] Sodium SerPl-sCnc 139mmol/L [id number] 135 - 145 [facility] Calcium SerPl-mCnc 8.7mg/dL [id number] 8.4 - 10.2 [facility] CO2 SerPl-sCnc 25mmol/L [id number] 24 - 32 [facility] Chloride SerPl-sCnc 106mmol/L [id number] 98 - 107 [facility] Bilirub SerPl-mCnc 3.6mg/dL Above high normal [id number] 0.3 - 1 [facility] Sodium SerPl-sCnc 136mmol/L [id number] 135 - 145 [facility] ALP SerPl-cCnc 287unit/L Above high normal [id number] 34 - 104 [facility] Calcium SerPl-mCnc 9.5mg/dL [id number] 8.4 - 10.2 [facility] BUN/Creat SerPl 8.1 Below low normal [id number] 12 - 20 [facility] Chloride SerPl-sCnc 103mmol/L [id number] 98 - 107 [facility] ALT SerPl-cCnc 424unit/L Above high normal [id number] 7 - 52 [facility] Albumin SerPl-mCnc 4.8g/dL [id number] 3.5 - 5 [facility] Creat SerPl-mCnc 0.99mg/dL [id number] 0.7 - 1.3 [facility] Prot SerPl-mCnc 7.6g/dL [id number] 6.4 - 8.5 [facility] Potassium SerPl-sCnc 5.8mmol/L Above high normal [id number] 3.5 - 5.1 [facility] Anion Gap SerPl Calc-sCnc 9 [id number] 5 - 14 [facility] CO2 SerPl-sCnc 24mmol/L [id number] 24 - 32 [facility] Glucose SerPl-mCnc 132mg/dL [id number] 70 - 199 [facility] BUN SerPl-mCnc 8mg/dL Below low normal [id number] 9 - 2 0 [facility] eGFRcr SerPlBld CKD-EPI 1 99mL/min/1.73m2 [id number] - [facility] AST SerPl-cCnc 193unit/L Above high normal [id number] 5 - 40 [facility] Eosinophil NFr Bld Auto 3.2% [id number] 0 - 6 [facility] Basophils NFr Bld Auto 0.7% [id number] 0 - 2 [facility] Lymphocytes NFr Bld Auto 13% Below low normal [id number] 20 - 48 [facility] Platelet # Bld Auto 171K/mcL [id number] 150 - 450 [facility] Neutrophils # Bld Auto 4.5K/mcL [id number] 1.8 - 7.8 [facility] RBC Auto 90.1FL [id number] 78 - 100 [facility] MCHC RBC Auto-EntMCnc 33.9g/dL [id number] 32 - 36 [facility] PMV Bld Auto 9.9FL [id number] 7.4 - 11.4 [facility] Monocytes # Bld Auto 0.23K/mcL [id number] 0 - 0.8 [facility] Lymphocytes # Bld Auto 0.74K/mcL Below low normal [id number] 1 - 3.2 [facility] Neutrophils NFr Bld Auto 78.7% Above high normal [id number] 44 - 74 [facility] Hct VFr Bld Auto 47.5% [id number] 40 - 54 [facility] Hgb Bld-mCnc 16.1g/dL [id number] 13.5 - 18 [facility] Basophils # Bld Auto 0.04K/mcL [id number] 0 - 0.2 [facility] RBC # Bld Auto 5.27M/mcL [id number] 4.7 - 6 [facility] RDW RBC Auto 13.2% [id number] 12.1 - 17.7 [facility] Monocytes NFr Bld Auto 4% [id number] 2 - 12 [facility] WBC # Bld Auto 5.7K/mcL [id number] 4 - 10.5 [facility] Eosinophil # Bld Auto 0.18K/mcL [id number] 0 - 0.5 [facility] MCH RBC Qn Auto 30.6pcg [id number] 25 - 33 [facility] LACTATE SERPL SCNC 1.4mmol/L Normal [id number] 0.5 - 2 [facility] Troponin I SerPl HS-mCnc 4ng/L Normal [id number] 0 - 20 [facility] GLUCOSE BLDC GLUCOMTR MCNC 92mg/dL Normal [id number] 70 - 199 [facility] Glomerular filtration rate/1.73 sq M. predicted 88 Normal [id number] 60 - [facility] CHLORIDE SERPL SCNC 104mmol/L Normal [id number] 98 - 107 [facility] CALCIUM SERPL MCNC 9.4mg/dL Normal [id number] 8.4 - 10.2 [facility] CREAT SERPL MCNC 1.1mg/dL Normal [id number] 0.7 - 1.3 [facility] GLUCOSE SERPL MCNC 102mg/dL Normal 70 - 199 [facility] POTASSIUM SERPL SCNC 3.5mmol/L Normal [id number] 3.5 - 5.1 [facility] SODIUM SERPL SCNC 140mmol/L Normal [id number] 135 - 145 [facility] BUN SERPL MCNC 11mg/dL Normal [id number] 9 - 20 [facility] HCO3 SER SCNC 28mmol/L Normal [id number] 24 - 32 [facility] ANION GAP SERPL SCNC 8mmol/L Normal [id number] 5 - 14 [facility] FLUAV RNA Nph Ql ALEJANDRO+non-probe NEGATIVE Normal [id number] [facility] RSV RNA Nph Ql ALEJANDRO+non-probe NEGATIVE Normal [id number] [facility] Service [facility] XXX-Imp Cepheid GeneXpert (RT-PCR) [facility] Normal [id number] [facility] FLUBV RNA Nph Ql ALEJANDRO+non-probe NEGATIVE Normal [id number] [facility] SPECIMEN SOURCE XXX NASOPHARYNGEAL Normal [id number] [facility] EOSINOPHIL NFR BLD AUTO 6.9% Above high normal [id number] 0 - 6 [facility] NUCLEATED RBC 0% Normal [id number] 0 - 1 [facility] PMV BLD AUTO 9.5fL Normal [id number] 7.4 - 11.4 [facility] BASOPHILS IN BLOOD BY AUTOMATED COUNT 0.1K/uL Normal [id number] 0 - 0.2 [facility] IMMATURE GRANULOCYTE, ABSOLUTE 0.02k/uL Normal [id number] - 0.1 [facility] PLATELET NO. BLD AUTO 201K/uL Normal [id number] 150 - 450 [facility] MCH RBC QN AUTO 31pg Normal [id number] 25 - 33 [facility] HGB BLD MCNC 14.6g/dL Normal [id number] 13.5 - 18 [facility] EOSINOPHIL NO. BLD AUTO 0.5K/uL Normal [id number] 0 - 0.5 [facility] HCT VFR BLD AUTO 41.9% Normal [id number] 40 - 54 [facility] LYMPHOCYTES NO. BLD AUTO 3.6K/uL Above high normal [id number] 1 - 3.2 [facility] MCV RBC AUTO 89fL Normal [id number] 78 - 100 [facility] LYMPHOCYTES NFR BLD AUTO 49.5% Above high normal [id number] 20 - 48 [facility] MCHC RBC AUTO MCNC 34.8g/dL Normal [id number] 32 - 36 [facility] RBC NO. BLD AUTO 4.71M/uL Normal [id number] 4.7 - 6 [facility] BASOPHILS NFR BLD AUTO 0.8% Normal [id number] 0 - 2 [facility] MONOCYTES NFR BLD AUTO 10.1% Normal [id number] 2 - 12 [facility] NEUTROPHILS NO. BLD AUTO 2.3K/uL Normal [id number] 1.8 - 7.8 [facility] RDW RBC AUTO RTO 12.2% Normal [id number] 12.1 - 17.7 [facility] WBC NO. BLD AUTO 7.2K/uL Normal [id number] 4 - 10.5 [facility] NEUTROPHILS NFR BLD AUTO 32.4% Below low normal [id number] 44 - 74 [facility] IMMATURE GRANULOCYTE, PERCENT 0.3% Normal [id number] 0 - 1 [facility] MONOCYTES NO. BLD AUTO 0.7K/uL Normal [id number] 0 - 0.8 [facility] Encounters Encounter Type Encounter Reason Primary Diagnosis Location Date Emergency dizziness Rash and other nonspecific skin eruption [facility] 12/06/2024 Emergency COVID-19 COVID-19 [facility] 08/26/19 24 Ambulatory Atopic dermatiti s, unspecified [facility] Care Team Organization Name Specialty Phone Email Start Date End [facility] Primary [facility] 12/06/2024 [facility] 08/26/2023 [facility] Primary Care 08/26/2023 [facility] Primary [facility] 07/29 [place] [facility] TAYLOR VELOZ Primary [facility] 07/31/2021 03/14/20 [place] [facility] Primary Care 07/31/2021 07/31/19
--- OUTSIDE RECORDS SUMMARY | 2024-12-09 11:26 | XMS_ITS | Clinical Summary ---
Author Organization [facility] Address [address] [place] [address] Care Team Providers Care Tooth Cutter Contact Wheel Name Role Phone Taylor Brownlee MD Primary Care Provider [phone] Allergies Active Allergy Reactions Criticality Noted Date Comments Egg-Derived Products Low 09/09/2017 Other reaction(s): Cough Medications Medication Sig Dispensed Refills Start Date End Date Status Multiple Vitamins-Minerals (MULTIVITAMIN ADULT PO) Take 1 tablet by mouth daily. 0 Active Bacillus Coagulans-Inulin (Probiotic) 1-250 BILLION-MG CAPS Take 2 tablets by mouth daily. 0 Active polyethylene glycol (MIRALAX) 17 g packet Take 17 g by mouth daily. 14 each 0 04/19/2021 Active Active Problems Problem Noted Date Diagnosed Date Umbilical hernia without obstruction and without gangrene 04/04/2021 Left inguinal hernia 04/04/2021 Family History Medical History Relation Name Comments [...] Value Date Recorded Sex Assigned at Male 03/13/2021 7:35 PM EDT Gender Identity Male 07/11/2022 1:31 AM EST Sexual Orientation Not on file Job Start Date Occupation Industry Not on file Not on file Not on file Last Filed Vital Signs Vital Sign Reading Time Taken Comments Blood Pressure 116/75 08/26/2023 2:26 AM EST Pulse 85 08/26/2023 2:26 AM EST Temperature 36.6 ??C (97.9 ??F) 08/26/2023 2:26 AM ES T Respiratory Rate 16 08/26/2023 2:26 AM EST Oxygen Saturation 98% 08/26/2023 2:26 AM EST Inhaled Oxygen Concentration - - Weight 90.7 kg (200 lb) 10/13/2022 10:51 AM EDT Height 175.3 cm (5' 9 ) 10/13/2022 10:51 AM EDT Body Mass Index 29.53 10/13/2022 10:51 AM EDT Plan of Treatment Health Maintenance Due Date Last Done Comments Hepatitis B Vaccines (1 of 3 - 3-dose series) 1984 Hepatitis C Screening 1984 Depression Screening 1996 BMI Counseling 01/13/2002 Preventative Health Evaluation 01/13/2002 DTap / Tdap / Td (1 - Tdap) 01/13/2003 COVID-19 Vaccine (3 2023-2 5 season) 2024 01/21/2021, 12/30/2020 Influenza Vaccine (#1) 2024 Pneumococcal Vaccine Aged Out No long er eligible based on patient's age to complete this topic RSV Ped < 20 months Aged Out No longe r eligible based on patient's age to complete this topic Medical Devices Implanted Type Area Curb Machine Operator Device Identifier Shelf Expiration Date Model / Serial / Lot Mesh 3d Max 4.3x6.3 Lft Lrg Dimensional Prefrm Lft Ster N Crba-Davl [id number] - [id number] Implanted:Qty: 1 on 04/19/2021 by Denis Infante MD at [facility] Location Mesh Left: Inguinal CR BARD - DAVOL DIV 11/21/2025 [id number] / / [id number] Advance Directives For more information, please contact: [phone] Latest Code Status on File Code Status Date Activated Date Inactivated Comments Full Code 04/19/2021 10:37 AM 04/19/2021 8:07 PM This code status was ascertained in the following way: discussion with patient . Code Status History Code Status Date Activated Date Inactivated Comments Full Code 04/19/2021 8:21 AM 04/19/2021 10:37 AM This code status was ascertained in the following way: discussion with patient . Full Code 06/30/2016 9:01 AM 06/30/2016 5:10 PM This code status was ascertained in the following way: discussion with patient. Care Teams Tooth Cutter Contact Wheel Relationship Specialty Start Date End Date Taylor Brownlee MD [address] [place] [address] PCP - General Supervisory Examiner 03/13/21
--- OUTSIDE RECORDS SUMMARY | 2024-12-09 11:26 | XMS_ITS | Clinical Summary ---
Author Organization [facility] Address [address] [place] [address] Phone Care Team Providers Care Commercial Real Estate Broker Name Role Phone Taylor Brownlee MD Primary Care Provider [phone] Allergies Active Allergy Reactions Criticality Noted Date [...] EDT - 12/06/2024 11:46 AM EDT Emergency [facility] Emergency [address] [place] [address] Hardy Ingram MD Rash (Primary Dx); Abnormal liver enzymes; Viral illness; Weakness Discharge Disposition: Home or Self Care from Last 3 Months Surgical History Surgery Date Site/Laterality Comments UPPER GASTROINTESTINAL ENDOSCOPY PROCEDURE:UPPER GASTROINTESTINAL ENDOSCOPY;COMMENT:last one 3-4 years ago for difficulty swallowing UPPER GASTROINTESTINAL ENDOSCOPY 06/30/2016 N/A PROCEDURE:UPPER GASTROINTESTINAL ENDOSCOPY;COMMENT:Procedure: UPPER ENDOSCOPY-EGD; Surgeon: Markel Villanueva MD; Location: [facility]; Service: Gastroenterology; Laterality: N/A; WISDOM TOOTH EXTRACTION 2005 PROCEDURE:WISDOM TOOTH EXTRACTION;COMMENT:all four HERNIA REPAIR 04/19/2021 Left PROCEDURE:INGUINAL HERNIA REPAIR;COMMENT:Procedure: LAPAROSCOPY REPAIR HERNIA INGUINAL; Surgeon: Denis Infante MD; Location: [facility]; Service: General; Laterality: Left; Medical History [...] this topic Medical Devices Implanted Type Area Project Designer Device Identifier Shelf Expiration Date Model / Serial / Lot Mesh 3d Max 4.3x6.3 Lft Lrg Dimensional Prefrm Lft Ster N Crba-Davl [id number] Implanted:Qty: 1 on 04/19/2021 by Denis Infante MD Implants Left: Inguinal CR BARD - DAVOL DIV 11/21/2025 [id number] / / [id number] Procedures Procedure Name Priority Date/Time Associated Diagnosis [...] on 12/06/2024 10:53 AM. Workstation Name - [id number] -------- FINAL REPORT -------- Dictated By: Olvin Galvez Dictated Date: 12/06/2024 10:48 ET Assigned Physician: Olvin Galvez Reviewed and Electronically Signed By: Olvin Galvez Signed Date: 12/06/2024 10:53 ET Workstation ID: [id number] Transcribed By: Self Edit Transcribed Date: 12/06/2024 [...] Galvez on 12/06/2024 10:53 AM.Workstation Name - [id number] -------- FINAL REPORT -------- Dictated By: Olvin Galvez Dictated Date: 12/06/2024 10:48 ET Assigned Physician: Olvin Galvez Reviewed and Electronically Signed By: Olvin Galvez Signed Date: 12/06/2024 10:53 ET Workstation ID: [id number] Transcribed By: Self Edit Transcribed Date: 12/06/2024 10:48 ET us Hardy Ingram MD IMG US PROCEDURES Final Result * Urinalysis with reflex microscopic (12/06/2024 9:10 AM EDT) Color, Urine Yellow Colorless, Yellow LAB URINALYSIS - AUTOMATED METHOD 12/06/2024 9:15 AM EDT [facility] Clarity, Urine Clear Clear LAB URINALYSIS - AUTOMATED METHOD [facility] Specific [place] Urine 1.010 1.005 - 1.030 LAB URINALYSIS - AUTOMATED METHOD 12/06/2024 9:15 AM EDT [facility] pH, Urine 6.0 5.0 - 8.0 pH LAB URINALYSIS - AUTOMATED METHOD 12/06[facility]2024 9:15 [facility] Leukocytes, Urine Negative Negative WBCs/mcL LAB URINALYSIS - AUTOMATED METHOD 12/06/2024 9:15 AM [facility] Nitrite, Urine Negative Negative LAB URINALYSIS - AUTOMATED METHOD 12/06/2024 9:15 [facility] Protein, Urine Negative Negative mg/dL LAB URINALYSIS - AUTOMATED METHOD 12/06/2024 9:15 [facility] Glucose, Urine Negative Negative mg/dL LAB URINALYSIS - AUTOMATED METHOD 12/06/2024 9:15 AM [facility] Ketones, Urine Negative Negative mg/dL LAB URINALYSIS - AUTOMATED METHOD 12/06/2024 9:15 AM [facility] Blood, Urine Negative Negative mg/dL LAB URINALYSIS - AUTOMATED METHOD 12/06/2024 9:15 AM [facility] Urine Urine specimen obtained by clean catch procedure / Unknown Non-blood Collection / Unknown 12/06/2024 9:10 AM EDT 12/06/2024 9:11 AM EDT us Hardy Ingram MD LAB URINE ORDERABLES Final Resu lt [facility] [address] [place] [address], [place] [phone] * (ABNORMAL) Basic Metabolic Panel (BMP) (12/06/2024 9:05 AM EDT) Sodium 139 135 - 145 mmol/L LAB CHEMISTRY METHOD [facility]/06[facility]2024 9[facility]37 [facility] Potassium 4.1 3.5 - 5.1 mmol/L LAB CHEMISTRY METHOD 12/06/2024 9:37 AM [facility] Chloride 106 98 - 107 mmol/L LAB CHEMISTRY METHOD 12/06/2024 9:37 AM [facility] CO2 25 24 - 32 mmol/L LAB CHEMISTRY METHOD 12/06/2024 9:37 AM [facility] Anion Gap 8 5 - 14 LAB CHEMISTRY METHOD 12/06/2024 9:37 AM [facility] Glucose 123 70 - 199 mg/dL LAB CHEMISTRY METHOD 12/06/2024 9:37 AM [facility] BUN 7(L) 9 - 20 mg/dL LAB CHEMISTRY METHOD 12/06/2024 9:37 AM [facility] Creatinine 0.96 0.70 - 1.30 mg/dL LAB CHEMISTRY METHOD 12/06/2024 9:37 AM [facility] eGFR 102 >=60 mL/min/1. 73m2 LAB CHEMISTRY METHOD 12/06/2024 9:37 AM [facility] Comment:Calculation based on the Chronic Kidney Disease Epidemiology Collaboration (CKD-EPI) equation refit without adjustment for race. BUN/Creatinine Ratio 7.3(L) 12.0 - 20.0 LAB CHEMISTRY METHOD 12/06/2024 9:37 AM [facility] Calcium 8.7 8.4 - 10.2 mg/dL LAB CHEMISTRY METHOD 12/06/2024 9:37 AM [facility] Blood Venous blood specimen / Unknown Venipuncture / Unknown 12/06/2024 9:05 AM EDT 12/06/2024 9:07 AM EDT us Hardy Ingram MD LAB BLOOD ORDERABLES Final Resu lt [facility] [address] [place] [address], [place] [phone] * (ABNORMAL) CBC auto differential (12/06/2024 7:47 AM EDT) [facility] WBC 5.7 4.0 - 10.5 K/mcL LAB HEMETOLOGY METHOD 12/06/2024 7:52 [facility] RBC 5.27 4.70 - 6.00 M/mcL LAB HEMETOLOGY METHOD 12/06/2024 7:52 AM EDT [facility] Hemoglobin 16.1 13.5 - 18.0 g/dL LAB HEMETOLOGY METHOD 12/06/2024 7:52 [facility] Hematocrit 47.5 40.0 - 54.0 % LAB HEMETOLOGY METHOD 12/06/2024 7:52 [facility] MCV 90.1 78.0 - 100.0 FL LAB HEMETOLOGY METHOD 12/06/2024 7:52 [facility] MCH 30.6 25.0 - 33.0 pcg LAB HEMETOLOGY METHOD 12/06/2024 7:52 [facility] MCHC 33.9 32.0 - 36.0 g/dL LAB HEMETOLOGY METHOD 12/06/2024 7:52 AM [facility] RDW 13.2 12.1 - 17.7 % LAB HEMETOLOGY METHOD 12/06/2024 7:52 [facility] Platelets 171 150 - 450 K/mcL LAB HEMETOLOGY METHOD 12/06/2024 7:52 [facility] MPV 9.9 7.4 - 11.4 FL LAB HEMETOLOGY METHOD 12/06/2024 7:52 AM [facility] Neutrophils Relative 78.7(H) 44.0 - 74.0 % LAB HEMETOLOGY METHOD 12/06/2024 7:52 AM [facility] Lymphocytes Relative 13.0(L) 20.0 - 48.0 % LAB HEMETOLOGY METHOD 12/06/2024 7:52 AM [facility] Monocytes Relative 4.0 2.0 - 12.0 % LAB HEMETOLOGY METHOD 12/06/2024 7:52 AM [facility] Eosinophils Relative 3.2 0.0 - 6.0 % LAB HEMETOLOGY METHOD 12/06/2024 7:52 AM [facility] Basophils Relative 0.7 0.0 - 2.0 % LAB HEMETOLOGY METHOD 12/06/2024 7:52 AM [facility] Neutrophils Absolute 4.50 1.80 - 7.80 K/mcL LAB HEMETOLOGY METHOD 12/06/2024 7:52 AM [facility] Lymphocytes Absolute 0.74(L) 1.00 - 3.20 K/mcL LAB HEMETOLOGY METHOD 12/06/2024 7:52 AM [facility] Monocytes Absolute 0.23 0.00 - 0.80 K/mcL LAB HEMETOLOGY METHOD 12/06/2024 7:52 AM [facility] Eosinophils Absolute 0.18 0.00 - 0.50 K/mcL LAB HEMETOLOGY METHOD 12/06/2024 7:52 AM [facility] Basophils Absolute 0.04 0.00 - 0.20 K/mcL LAB HEMETOLOGY METHOD 12/06/2024 7:52 AM [facility] Blood Venous blood specimen / Unknown Venipuncture / Unknown 12/06/2024 7:47 AM EDT 12/06/2024 7:49 AM EDT us Hardy Ingram MD LAB BLOOD ORDERABLES Final Resu lt [facility] [address] [place] [address], [place] [phone] * (ABNORMAL) Comprehensive metabolic panel (12/06/2024 7:47 AM EDT) Sodium 136 135 - 145 mmol/L LAB CHEMISTRY METHOD 12/06[facility]2024 8:31 [facility] Potassium 5.8(H) 3.5 - 5.1 mmol/L LAB CHEMISTRY METHOD 12/06/2024 8:31 AM [facility] Comment:Moderate Hemolysis m ay affect test result(s). Chloride 103 98 - 107 mmol/L LAB CHEMISTRY METHOD 12/06/2024 8:31 AM [facility] CO2 24 24 - 32 mmol/L LAB CHEMISTRY METHOD 12/06/2024 8:31 [facility] Anion Gap 9 5 - 14 LAB CHEMISTRY METHOD 12/06/2024 8:31 AM [facility] Glucose 132 70 - 199 mg/dL LAB CHEMISTRY METHOD 12/06/2024 8:31 AM [facility] BUN 8(L) 9 - 20 mg/dL LAB CHEMISTRY METHOD 12/06/2024 8:31 AM [facility] Creatinine 0.99 0.70 - 1.30 mg/dL LAB CHEMISTRY METHOD 12/06/2024 8:31 AM [facility] eGFR 99 >=60 mL/min/1. 73m2 LAB CHEMISTRY METHOD 12/06/2024 8:31 AM [facility] Comment:Calculation based on the Chronic Kidney Disease Epidemiology Collaboration (CKD-EPI) equation refit without adjustment for race. BUN/Creatinine Ratio 8.1(L) 12.0 - 20.0 LAB CHEMISTRY METHOD 12/06/2024 8:31 [facility] Calcium 9.5 8.4 - 10.2 mg/dL LAB CHEMISTRY METHOD 12/06/2024 8:31 [facility] AST (SGOT) 193(H) 5 - 40 unit/L LAB CHEMISTRY METHOD 12/06/2024 8:31 AM [facility] Comment:Moderate Hemolysis m ay affect test result(s). ALT (SGPT) 424(H) 7 - 52 unit/L LAB CHEMISTRY METHOD 12/06/2024 8:31 AM [facility] Alkaline Phosphatase 287(H) 34 - 104 unit/L LAB CHEMISTRY METHOD 12/06/2024 8:31 AM [facility] Total Protein 7.6 6.4 - 8.5 g/dL LAB CHEMISTRY METHOD 12/06/2024 8:31 AM [facility] Albumin 4.8 3.5 - 5.0 g/dL LAB CHEMISTRY METHOD 12/06/2024 8:31 AM [facility] Total Bilirubin 3.6(H) 0.3 - 1.0 mg/dL LAB CHEMISTRY METHOD 12/06/2024 8:31 AM [facility] Blood Venous blood specimen / Unknown Venipuncture / Unknown 12/06/2024 7:47 AM EDT 12/06/2024 7:49 AM EDT us Hardy Ingram MD LAB BLOOD ORDERABLES Final Resu lt [facility] [address] [place] [address], [place] [phone] from Last 3 Months Insurance [employer] Care Teams Commercial Real Estate Broker Relationship Specialty Start Date End Date Taylor Brownlee MD [address] [place] [address] PCP - General Split Leather Department Supervisor 03/13/21
--- OUTSIDE RECORDS SUMMARY | 2024-12-09 11:26 | XMS_ITS | Encounter Summary ---
Author Organization [facility] Address [address] [place] [address] Care Team Providers Care Transfer Machine Operator Name Role Phone Taylor Brownlee MD Primary Care Provider [phone] Reason for Visit * Reason Comments Dizziness Pt c/o dizziness x1 week. Seen at told he has fluid in ears. Rash Pt woke this morning with full body rash. Denies new soaps, detergents... Encounter Details Date Type Department Care Team (Late st Contact Info) Description 12/06/2024 7:32 AM EDT - 12/06/2024 11:46 AM EDT Emergency [facility] Emergency [address] [place] [id number] Hardy Ingram MD [address] [place] [address] Rash (Primary Dx); Abnormal liver enzymes; Viral [...] be sent through Care Everywhere. * Rash (Russian) * Viral Infections (Russian) * LFTs (Liver Function Tests) (Russian) documented in this encounter Medications at Time [...] HERNIA INGUINAL; Surgeon: Denis Infante MD; Location: [facility]; Service: General; Laterality: Left; ??? UPPER GASTROINTESTINAL ENDOSCOPY PROCEDURE:UPPER GASTROINTESTINAL ENDOSCOPY;COMMENT:last one 3-4 years ago for difficulty swallowing ??? UPPER GASTROINTESTINAL ENDOSCOPY N/A 06/30/2016 PROCEDURE:UPPER GASTROINTESTINAL ENDOSCOPY;COMMENT:Procedure: UPPER ENDOSCOPY- EGD; Surgeon: Markel Villanueva MD; Location: [facility]; Service: Gastroenterology; Laterality: N/A; ??? WISDOM [...] on 12/06/2024 10:53 AM. Workstation Name - [id number] -------- FINAL REPORT -------- Dictated By: Olvin Galvez Dictated Date: 12/06/2024 10:48 ET Assigned Physician: Olvin Galvez Reviewed and Electronically Signed By: Olvin Galvez Signed Date: 12/06/2024 10:53 ET Workstation ID: [id number] Transcribed By: Self Edit Transcribed Date: 12/06/2024 [...] Color, Urine Yellow Clarity, Urine Clear Specific [place] Urine 1.010 pH, Urine 6.0 Leukocytes, Urine Negative Nitrite, Urine Negative Protein, Urine Negative Glucose, Urine Negative Ketones, Urine Negative Blood, Urine Negative CBC AND DIFFERENTIAL Narrative: The following orders were created for panel order CBC and differential. Procedure Abnormality Status --------- ------ CBC auto differential[[id number]] Abnormal Final result Please view results for these tests on the individual orders. URINALYSIS WITH REFLEX MICROSCOPIC Narrative: The following orders were created for panel order Urinalysis with reflex microscopic ([id number]). Procedure Abnormality Status --------- ------ Urinalysis with reflex ...[[id number]] Normal Final result Please view results for [...] management and/or test interpretation with external health daycare teacher [] Admission/Observation - Patient's presentation, diagnostics, and/or [...] on 12/06/2024 10:53 AM. Workstation Name - [id number] -------- FINAL REPORT -------- Dictated By: Olvin Galvez Dictated Date: 12/06/2024 10:48 ET Assigned Physician: Olvin Galvez Reviewed and Electronically Signed By: Olvin Galvez Signed Date: 12/06/2024 10:53 ET Workstation ID: [id number] Transcribed By: Self Edit Transcribed Date: 12/06/2024 [...] Galvez on 12/06/2024 10:53 AM.Workstation Name - [id number] -------- FINAL REPORT -------- Dictated By: Olvin Galvez Dictated Date: 12/06/2024 10:48 ET Assigned Physician: Olvin Galvez Reviewed and Electronically Signed By: Olvin Galvez Signed Date: 12/06/2024 10:53 ET Workstation ID: [id number] Transcribed By: Self Edit Transcribed Date: 12/06/2024 10:48 ET us Hardy Ingram MD IMG US PROCEDURES Final Result * Urinalysis with reflex microscopic (12/06/2024 9:10 AM EDT) Color, Urine Yellow Colorless, Yellow LAB URINALYSIS - AUTOMATED METHOD 12/06/2024 9:[address] [facility] Clarity, Urine Clear Clear LAB URINALYSIS - AUTOMATED METHOD 12/06/2024 9:[address] [facility] Specific [place] Urine 1.010 1.005 - 1.030 LAB URINALYSIS - AUTOMATED METHOD 12/06/2024 9:[address] [facility] pH, Urine 6.0 5.0 - 8.0 pH LAB URINALYSIS - AUTOMATED METHOD 12/06/2024 9:[address] [facility] Leukocytes, Urine Negative Negative WBCs/mcL LAB URINALYSIS - AUTOMATED METHOD 12/06/2024 9:[address] [facility] Nitrite, Urine Negative Negative LAB URINALYSIS - AUTOMATED METHOD 12/06/2024 9:[address] [facility] Protein, Urine Negative Negative mg/dL LAB URINALYSIS - AUTOMATED METHOD 12/06/2024 9:[address] [facility] Glucose, Urine Negative Negative mg/dL LAB URINALYSIS - AUTOMATED METHOD 12/06/2024 9:[address] [facility] Ketones, Urine Negative Negative mg/dL LAB URINALYSIS - AUTOMATED METHOD 12/06/2024 9:[address] [facility] Blood, Urine Negative Negative mg/dL LAB URINALYSIS - AUTOMATED METHOD 12/06/2024 9:[address] [facility] Urine Urine specimen obtained by clean catch procedure / Unknown Non-blood Collection / Unknown 12/06/2024 9:10 AM EDT 12/06/2024 9:11 AM EDT us Hardy Ingram MD LAB URINE ORDERABLES Final Resu lt [facility] [address] [place] [address], [place] [phone] * (ABNORMAL) Basic Metabolic Panel (BMP) (12/06/2024 9:05 AM EDT) Sodium 139 135 - 145 mmol/L LAB CHEMISTRY METHOD 12/06/2024 9:[address] [facility] Potassium 4.1 3.5 - 5.1 mmol/L LAB CHEMISTRY METHOD 12/06/2024 9:[address] [facility] Chloride 106 98 - 107 mmol/L LAB CHEMISTRY METHOD 12/06/2024 9:[address] [facility] CO2 25 24 - 32 mmol/L LAB CHEMISTRY METHOD 12/06/2024 9:[address] [facility] Anion Gap 8 5 - 14 LAB CHEMISTRY METHOD 12/06/2024 9:[address] [facility] Glucose 123 70 - 199 mg/dL LAB CHEMISTRY METHOD 12/06/2024 9:[address] [facility] BUN 7(L) 9 - 20 mg/dL LAB CHEMISTRY METHOD 12/06/2024 9:[address] [facility] Creatinine 0.96 0.70 - 1.30 mg/dL LAB CHEMISTRY METHOD 12/06/2024 9:[address] [facility] eGFR 102 >=60 mL/min/1. 73m2 LAB CHEMISTRY METHOD 12/06/2024 9:[address] [facility] Comment:Calculation based on the Chronic Kidney Disease Epidemiology Collaboration (CKD-EPI) equation refit without adjustment for race. BUN/Creatinine Ratio 7.3(L) 12.0 - 20.0 LAB CHEMISTRY METHOD 12/06/2024 9:[address] [facility] Calcium 8.7 8.4 - 10.2 mg/dL LAB CHEMISTRY METHOD 12/06/2024 9:37 AM EDT [facility] Blood Venous blood specimen / Unknown Venipuncture / Unknown 12/06/2024 9:05 AM EDT 12/06/2024 9:07 AM EDT us Hardy Ingram MD LAB BLOOD ORDERABLES Final Resu lt [facility] [address] [place] [address], [place] [phone] * (ABNORMAL) CBC auto differential (12/06/2024 7:47 AM EDT) WBC 5.7 4.0 - 10.5 K/mcL LAB HEMETOLOGY METHOD 12/06/2024 7:52 AM EDT [facility] RBC 5.27 4.70 - 6.00 M/[facility] LAB HEMETOLOGY METHOD 12/06[facility]2024 7[facility] Hemoglobin 16.1 13.5 - 18.0 g/dL LAB HEMETOLOGY METHOD 12/06/2024 7[facility] Hematocrit 47.5 40.0 - 54.0 % LAB HEMETOLOGY METHOD 12/06/2024 7:52 [facility] MCV 90.1 78.0 - 100.0 FL LAB HEMETOLOGY METHOD 12/06/2024 7:52 [facility] MCH 30.6 25.0 - 33.0 pcg LAB HEMETOLOGY METHOD 12/06/2024 7:52 [facility] MCHC 33.9 32.0 - 36.0 g/dL LAB HEMETOLOGY METHOD 12/06/2024 7:52 [facility] RDW 13.2 12.1 - 17.7 % LAB HEMETOLOGY METHOD 12/06/2024 7:[address] [facility] Platelets 171 150 - 450 K/mcL LAB HEMETOLOGY METHOD 12/06/2024 7:[address] [facility] MPV 9.9 7.4 - 11.4 FL LAB HEMETOLOGY METHOD 12/06/2024 7:[address] [facility] Neutrophils Relative 78.7(H) 44.0 - 74.0 % LAB HEMETOLOGY METHOD 12/06/2024 7:[address] [facility] Lymphocytes Relative 13.0(L) 20.0 - 48.0 % LAB HEMETOLOGY METHOD 12/06/2024 7:[address] [facility] Monocytes Relative 4.0 2.0 - 12.0 % LAB HEMETOLOGY METHOD 12/06/2024 7:[address] [facility] Eosinophils Relative 3.2 0.0 - 6.0 % LAB HEMETOLOGY METHOD 12/06/2024 7:[address] [facility] Basophils Relative 0.7 0.0 - 2.0 % LAB HEMETOLOGY METHOD 12/06/2024 7:[address] [facility] Neutrophils Absolute 4.50 1.80 - 7.80 K/mcL LAB HEMETOLOGY METHOD 12/06/2024 7:[address] [facility] Lymphocytes Absolute 0.74(L) 1.00 - 3.20 K/mcL LAB HEMETOLOGY METHOD 12/06/2024 7:[address] [facility] Monocytes Absolute 0.23 0.00 - 0.80 K/mcL LAB HEMETOLOGY METHOD 12/06/2024 7:[address] [facility] Eosinophils Absolute 0.18 0.00 - 0.50 K/mcL LAB HEMETOLOGY METHOD 12/06/2024 7:[address] [facility] Basophils Absolute 0.04 0.00 - 0.20 K/mcL LAB HEMETOLOGY METHOD 12/06/2024 7:[address] [facility] Blood Venous blood specimen / Unknown Venipuncture / Unknown 12/06/2024 7:47 AM EDT 12/06/2024 7:49 AM EDT us Hardy Ingram MD LAB BLOOD ORDERABLES Final Resu lt [facility] [address] [place] [address], [place] [phone] * (ABNORMAL) Comprehensive metabolic panel (12/06/2024 7:47 AM EDT) Sodium 136 135 - 145 mmol/L LAB CHEMISTRY METHOD 12/06/2024 8:[address] [facility] Potassium 5.8(H) 3.5 - 5.1 mmol/L LAB CHEMISTRY METHOD 12/06/2024 8:[address] [facility] Comment:Moderate Hemolysis m ay affect test result(s). Chloride 103 98 - 107 mmol/L LAB CHEMISTRY METHOD 12/06/2024 8:[address] [facility] CO2 24 24 - 32 mmol/L LAB CHEMISTRY METHOD 12/06/2024 8:[address] [facility] Anion Gap 9 5 - 14 LAB CHEMISTRY METHOD 12/06/2024 8:[address] [facility] Glucose 132 70 - 199 mg/dL LAB CHEMISTRY METHOD 12/06/2024 8:[address] [facility] BUN 8(L) 9 - 20 mg/dL LAB CHEMISTRY METHOD 12/06/2024 8:[address] [facility] Creatinine 0.99 0.70 - 1.30 mg/dL LAB CHEMISTRY METHOD 12/06/2024 8:[address] [facility] eGFR 99 >=60 mL/min/1. 73m2 LAB CHEMISTRY METHOD 12/06/2024 8:[address] [facility] Comment:Calculation based on the Chronic Kidney Disease Epidemiology Collaboration (CKD-EPI) equation refit without adjustment for race. BUN/Creatinine Ratio 8.1(L) 12.0 - 20.0 LAB CHEMISTRY METHOD 12/06/2024 8:[address] [facility] Calcium 9.5 8.4 - 10.2 mg/dL LAB CHEMISTRY METHOD 12/06/2024 8:[address] [facility] AST (SGOT) 193(H) 5 - 40 unit/L LAB CHEMISTRY METHOD 12/06/2024 8:[address] [facility] Comment:Moderate Hemolysis m ay affect test result(s). ALT (SGPT) 424(H) 7 - 52 unit/L LAB CHEMISTRY METHOD 12/06/2024 8:[address] [facility] Alkaline Phosphatase 287(H) 34 - 104 unit/L LAB CHEMISTRY METHOD 12/06/2024 8:[address] [facility] Total Protein 7.6 6.4 - 8.5 g/dL LAB CHEMISTRY METHOD 12/06/2024 8:[address] [facility] Albumin 4.8 3.5 - 5.0 g/dL LAB CHEMISTRY METHOD 12/06/2024 8:[address] [facility] Total Bilirubin 3.6(H) 0.3 - 1.0 mg/dL LAB CHEMISTRY METHOD 12/06/2024 8:[address] [facility] Blood Venous blood specimen / Unknown Venipuncture / Unknown 12/06/2024 7:47 AM EDT 12/06/2024 7:49 AM EDT us Hardy Ingrma MD LAB BLOOD ORDERABLES Final Resu lt [facility] [place] [facility] [address] [place] [address], [place] [phone] documented in this encounter Visit Diagnoses Diagnosis [...] RN) documented in this encounter Care Teams Transfer Machine Operator Relationship Specialty Start Date End Date Taylor Brownlee MD [address] [place] [address] PCP - General Library Acquisitions Technician 03/13/21 documented as of this encounter
[2024-12-09 13:17] LABS: MANUAL DIFF FLAG NO
[2024-12-09 13:24] LABS: Basophils Percent Auto 0.6 % (0-2); Eosinophils Absolute Auto 0.1 X10*3/uL (0.0-0.4); Eosinophils Percent Auto 1.4 % (0-4); Hematocrit 46.2 % (42.0-52.0); Hemoglobin 15.9 g/dl (14.0-18.0); Imm Gran Abs Auto 0.02 X10*3/uL (0.00-0.03); Imm Gran Pct Auto 0.4 % (0.0-0.4); Lymphocytes Absolute Auto 1.4 X10*3/uL (1.2-4.9); Lymphocytes Percent Auto 27.9 % (20-40); Mean Corpuscular HGB Conc 34.4 g/dl (31.0-36.0); Mean Corpuscular Hemoglobin 31.1 pg (27.0-33.0); Mean Corpuscular Volume 90.4 fL (80.0-98.0); Monocytes Absolute Auto 0.5 X10*3/uL (0.1-1.2); Monocytes Percent Auto 10.5 % (2-11); Neutrophils Absolute Auto 2.9 x10*3/uL (2.0-8.3); Neutrophils Percent Auto 59.2 % (45-73); Platelet Count 198 X10*3/uL (160-400); Red Blood Count 5.11 X10*6/uL (4.60-5.80); Red Cell Distribution Width 12.9 % (11.0-16.0); White Blood Count 4.9 X10*3/uL (4.8-10.8)
[2024-12-09 13:35] LABS: Alanine Aminotransferase 480 U/L (0-40); Albumin Level 4.2 g/dL (3.5-5.0); Alkaline Phosphatase 280 U/L (39-117); Amylase 63 U/L (28-100); Aspartate Amino Transferase 127 U/L (5-37); Bilirubin Direct 0.5 mg/dL (0.0-0.5); Bilirubin Total 1.3 mg/dL (0.0-1.0); Lipase 65 U/L (8-78); Total Protein 6.9 g/dL (6.5-8.0)
[2024-12-10 07:35] LABS: Hepatitis A Antibody IgM 0.12 Index (0-0.79); ~Hepatitis A Antibody IgM Nonreactive (Nonreactive)
[2024-12-10 08:05] LABS: HBS Num1 0.61 mIU/mL (0-7.99); HBc Num1 0.15 S/CO (0.00-0.79); HBsAGNum1 0.38 S/CO (0.00-0.99); Hepatitis B Core Antibody Nonreactive (Nonreactive); Hepatitis B Surface Antigen Negative (Negative); ~HepC Num1 0.17 S/CO (0.00-0.79); ~Hepatitis B Surface Antibody NONREACTIVE (Nonreactive); ~Hepatitis C Antibody Nonreactive (Nonreactive)
== END 2024-12-09 10:55 | disposition home or self-care (01) ==
LOC: HO.HMGCLDS 10:54
PROVIDERS: PCP Internal Medicine; Visit Provider Physician Assistant
DX: R17 Unspecified jaundice (principal)
CPT/HCPCS: 36415; 80076; 82150; 83690; 85025; 86704; 86706; 86709; 86803; 87340

== ENCOUNTER 2024-12-13 12:30 | Outpatient (AMB) | payer OTHER, SELFPAY ==
--- NOTE | 2024-12-13 12:32 | A.OFFPC_ITS ---
Vital Signs 12/13/24 12:33 Height 5 ft 9 in Weight 203 lb BMI 30.0 BP 106/78 Blood Pressure Location Lt brachial Position Sitting Respiration 18 Pulse 79 Pulse Source Pulse Oximeter Temp 98.1 F Temp Source Oral Pulse Oximetry (%) 99 Oxygen Delivery Method Room Air Intake Visit Reasons: ER follow up Intake Note: Pt is here today for a ER follow up visit. Allergies No Known Allergies Allergy (Verified 12/13/24 12:34) Medication List - Last Reconciled 12/13/24 by Taylor Brownlee MD hydroxyzine HCl 25 mg PO Q8H PRN Tobacco use date assessed: 12/13/24 Dental Screening Dental Screen Date: 12/13/24 Did you have a dental visit in the last 12 months?: Yes Did you have a dental problem in the last 6 months where you did not have access to dental care?: No Was dental information given to patient?: Patient has dentist HPI ER follow up HPI Details Patient presents for the follow-up of ER visit. He developed symptoms of general malaise nausea body aches follow with my maculopapular rash. He was seen in the ER and blood work indicated elevated LFTs. Patient had abdominal ultrasound which show no acute findings. He was prescribed prednisone and Benadryl and the rash resolved. Patient denies abdominal pain nausea vomiting jaundice fever or chills PFSH Medical History Paresthesia of bilateral legs Lower back pain Thigh pain Inguinal hernia Umbilical hernia Annual physical exam Allergic rhinitis Eosinophilic esophagitis Surgical History History of hernia surgery Family History Father No problems noted. Mother Heart attack Sister Substance use disorder Social History Housing: House Patient Tobacco Use Status: Never used Tobacco e-Cigarette/Vaping Use: Never Used Second Hand Smoke Exposure: Yes service: No Current occupational status: employed Cognitive needs: No Hearing needs: No Vision needs: No Questionnaire Thrive Questionnaire Date Thrive assessed: 12/13/24 KIZZY-7 AMB Questionnaire KIZZY-7 Date KIZZY - 7 assessed: 08/19/24 Source: Developed by Drs. Skyler Agustin, Chandrika Benítez, John Urrutia and colleagues, with an educational preston from [employer]. Review of Systems Const All systems reviewed & are unremarkable except as noted in HPI and below Eyes Reports no additional complaints ENT Reports no additional complaints Card Reports no additional complaints Resp Reports no additional complaints GI Reports no additional complaints Physical exam (Primary Care) Vital Signs: Last Vital Signs Temp 98.1 F 12/13/24 12:33 Pulse 79 12/13/24 12:33 Resp 18 12/13/24 12:33 BP 106/78 12/13/24 12:33 Pulse Ox 99 12/13/24 12:33 Oxygen Delivery Method Room Air 12/13/24 12:33 BMI result Body Mass Index 30.0 Tobacco/Smoking Status: Tobacco use Status Tobacco use date assessed 12/13/24 12/13/24 12:38 Patient Tobacco Use Status Never used Tobacco 12/13/24 12:38 e-Cigarette/Vaping Use Never Used 12/13/24 12:34 Thrive Assessment: Date of Thrive Assessment Date Thrive assessed 12/13/24 12/13/24 12:34 Const General: no acute distress HENMT Head: Yes normal to inspection Face and sinus: Yes normal facial exam Throat: Yes posterior oropharynx normal Resp Effort & Inspection: normal respiratory effort Auscultation: clear to auscultation bilaterally Cardio Rhythm: regular rhythm Heart sounds: S1 normal heart sound present and S2 normal heart sound present GI Inspection: Yes normal to inspection Palpation (GI): Soft to palpation Percussion: Yes normal to percussion Auscultation: normal bowel sounds Coding Level of Care Code Est Pt Level 3 (37767) Diagnoses Elevated LFTs R79.89 Assessment & Plan Assessment & Plan (1) Elevated LFTs: Code(s): R79.89 - Other specified abnormal findings of blood chemistry Category: Medical Plan: Most likely secondary to viral syndrome. Patient was advised to avoid alcohol unmz-eoc-yujhepe pain medications and repeat LFTs in 2 weeks Orders: Orders Liver Panel 2 Weeks R79.89 - Other specified abnormal findings of blood chemistry Gamma Glutamyl Transpeptidase 2 Weeks R79.89 - Other specified abnormal findings of blood chemistry Complete Blood Count Auto Diff 3 Months Z00.00 - Encounter for general adult medical examination without abnormal findings Lipid Panel 3 Months Z00.00 - Encounter for general adult medical examination without abnormal findings UA w Microscopic 3 Months Z00.00 - Encounter for general adult medical examination without abnormal findings Hepatitis A,B,C Profile 2 Weeks R79.89 - Other specified abnormal findings of blood chemistry Comprehensive [place]. Panel Fast 3 Months Z00.00 - Encounter for general adult medical examination without abnormal findings
[2024-12-13 12:33] VITALS: BP 106/78; PULSE 79; RESP 18; TEMP 36.7; O2SAT 99
--- OUTSIDE RECORDS SUMMARY | 2024-12-13 13:35 | XMS_ITS | Clinical Summary ---
Author Organization [facility] Address [address] [place] [address] Phone Care Team Providers Care Surgery Attendant Name Role Phone Taylor Brownlee MD Primary Care Provider [phone] Allergies Active Allergy Reactions Criticality Noted Date Comments Egg Cough Low 09/09/2017 Other reaction(s): Cough Medications predniSONE (DELTASONE) 50 mg tablet Take 1 tablet (50 mg total) by mouth 1 (one) time each day for 5 days. 5 each 12/06/2024 Active Problems No known active problems Encounters Date Type Department Care Team Description 12/06/2024 7:32 AM EDT - 12/06/2024 11:46 AM EDT Emergency [facility] Emergency [address] [place] [address] Hardy Ingram MD Rash (Primary Dx); Abnormal liver enzymes; Viral illness; Weakness Discharge Disposition: Home or Self Care from Last 3 Months Surgical History Surgery Date Site/Laterality Comments UPPER GASTROINTESTINAL ENDOSCOPY PROCEDURE:UPPER GASTROINTESTINAL ENDOSCOPY;COMMENT:last one 3-4 years ago for difficulty swallowing UPPER GASTROINTESTINAL ENDOSCOPY 06/30/2016 N/A PROCEDURE:UPPER GASTROINTESTINAL ENDOSCOPY;COMMENT:Procedure: UPPER ENDOSCOPY-EGD; Surgeon: Markel Villanueva MD; Location: [facility] END[facility]COPY; Service: Gastroenterology; Laterality: N/A; WISDOM TOOTH EXTRACTION 2005 PROCEDURE:WISDOM TOOTH EXTRACTION;COMMENT:all four HERNIA REPAIR 04/19/2021 Left PROCEDURE:INGUINAL HERNIA REPAIR;COMMENT:Procedure: LAPAROSCOPY REPAIR HERNIA INGUINAL; Surgeon: Denis Infante MD; Location: [facility] SURGERY; Service: General; Laterality: Left; Medical History [...] Health Screening 06/24/2022 COVID-19 Vaccine (3 - 2023-2 5 season) [...] this topic Medical Devices Implanted Type Area Sole Cutter Device Identifier Shelf Expiration Date Model / Serial / Lot Mesh 3d Max 4.3x6.3 Lft Lrg Dimensional Prefrm Lft Ster N Crba-Davl [id number] Implanted:Qty: 1 on 04/19/2021 by Denis Infante MD Implants Left: Inguinal CR BARD - DAVOL DIV 11/21/2025 [id number] / / [id number] Procedures Procedure Name Priority Date/Time Associated Diagnosis [...] on 12/06/2024 10:53 AM. Workstation Name - [id number] -------- FINAL REPORT -------- Dictated By: Olvin Galvez Dictated Date: 12/06/2024 10:48 ET Assigned Physician: Olvin Galvez Reviewed and Electronically Signed By: Olvin Galvez Signed Date: 12/06/2024 10:53 ET Workstation ID: [id number] Transcribed By: Self Edit Transcribed Date: 12/06/2024 [...] Galvez on 12/06/2024 10:53 AM.Workstation Name - [id number] -------- FINAL REPORT -------- Dictated By: Olvin Galvez Dictated Date: 12/06/2024 10:48 ET Assigned Physician: Olvin Galvez Reviewed and Electronically Signed By: Olvin Galvez Signed Date: 12/06/2024 10:53 ET Workstation ID: [id number] Transcribed By: Self Edit Transcribed Date: 12/06/2024 10:48 ET us Hardy Ingram MD IMG US PROCEDURES Final Result * Urinalysis with reflex microscopic (12/06/2024 9:10 AM EDT) Color, Urine Yellow Colorless, Yellow LAB URINALYSIS - AUTOMATED METHOD 12/06/2024 9:15 AM EDT [facility] Clarity, Urine Clear Clear LAB URINALYSIS - AUTOMATED METHOD [facility] Specific [place] Urine 1.010 1.005 - 1.030 LAB URINALYSIS - AUTOMATED METHOD 12/06/2024 9:15 AM EDT [facility] pH, Urine 6.0 5.0 - 8.0 pH LAB URINALYSIS - AUTOMATED METHOD 12/06/2024 9:[facility] Leukocytes, Urine Negative Negative WBCs/mcL LAB URINALYSIS - AUTOMATED METHOD 12/06/2024 9:15 [facility] Nitrite, Urine Negative Negative LAB URINALYSIS - AUTOMATED METHOD 12/06/2024 9:15 [facility] Protein, Urine Negative Negative mg/dL LAB URINALYSIS - AUTOMATED METHOD 12/06/2024 9:15 [facility] Glucose, Urine Negative Negative mg/dL LAB URINALYSIS - AUTOMATED METHOD 12/06/2024 9:15 [address] [facility] Ketones, Urine Negative Negative mg/dL LAB URINALYSIS - AUTOMATED METHOD 12/06/2024 9:15 AM [facility] Blood, Urine Negative Negative mg/dL LAB URINALYSIS - AUTOMATED METHOD 12/06/2024 9:15 AM [facility] Urine Urine specimen obtained by clean catch procedure / Unknown Non-blood Collection / Unknown 12/06/2024 9:10 AM EDT 12/06/2024 9:11 AM EDT us Hardy Ingram MD LAB URINE ORDERABLES Final Resu lt [facility] [address] [place] [address], [place] [phone] * (ABNORMAL) Basic Metabolic Panel (BMP) (12/06/2024 9:05 AM EDT) Sodium 139 135 - 145 mmol/L LAB CHEMISTRY METHOD 12/06/2024 9:37 [facility] Potassium 4.1 3.5 - 5.1 mmol/L LAB CHEMISTRY METHOD 12/06/2024 9:37 AM [facility] Chloride 106 98 - 107 mmol/L LAB CHEMISTRY METHOD 12/06/2024 9:37 AM [facility] CO2 25 24 - 32 mmol/L LAB CHEMISTRY METHOD 12/06/2024 9:37 AM [facility] Anion Gap 8 5 - 14 LAB CHEMISTRY METHOD 12/06/2024 9:37 AM [facility] Glucose 123 70 - 199 mg/dL LAB CHEMISTRY METHOD 12/06/2024 9:37 AM [facility] BUN 7(L) 9 - 20 mg/dL LAB CHEMISTRY METHOD 12/06/2024 9:37 AM [facility] Creatinine 0.96 0.70 - 1.30 mg/dL LAB CHEMISTRY METHOD 12/06/2024 9:37 AM [facility] eGFR 102 >=60 mL/min/1. 73m2 LAB CHEMISTRY METHOD 12/06/2024 9:37 AM [facility] Comment:Calculation based on the Chronic Kidney Disease Epidemiology Collaboration (CKD-EPI) equation refit without adjustment for race. BUN/Creatinine Ratio 7.3(L) 12.0 - 20.0 LAB CHEMISTRY METHOD 12/06/2024 9:37 AM [facility] Calcium 8.7 8.4 - 10.2 mg/dL LAB CHEMISTRY METHOD 12/06/2024 9:37 AM [facility] Blood Venous blood specimen / Unknown Venipuncture / Unknown 12/06/2024 9:05 AM EDT 12/06/2024 9:07 AM EDT us Hardy Ingram MD LAB BLOOD ORDERABLES Final Resu lt [facility] [address] [place] [address], [place] [phone] * (ABNORMAL) CBC auto differential (12/06/2024 7:47 AM EDT) [facility] WBC 5.7 4.0 - 10.5 K/mcL LAB HEMETOLOGY METHOD 12/06/2024 7:52 [facility] RBC 5.27 4.70 - 6.00 M/mcL LAB HEMETOLOGY METHOD 12/06/2024 7:52 AM [facility] Hemoglobin 16.1 13.5 - 18.0 g/dL LAB HEMETOLOGY METHOD 12/06/2024 7:52 AM [facility] Hematocrit 47.5 40.0 - 54.0 % LAB HEMETOLOGY METHOD 12/06/2024 7:52 AM [facility] MCV 90.1 78.0 - 100.0 FL LAB HEMETOLOGY METHOD 12/06/2024 7:52 AM [facility] MCH 30.6 25.0 - 33.0 pcg LAB HEMETOLOGY METHOD 12/06/2024 7:52 AM [facility] MCHC 33.9 32.0 - 36.0 g/dL LAB HEMETOLOGY METHOD 12/06/2024 7:52 AM [facility] RDW 13.2 12.1 - 17.7 % LAB HEMETOLOGY METHOD 12/06/2024 7:52 AM [facility] Platelets 171 150 - 450 K/mcL LAB HEMETOLOGY METHOD 12/06/2024 7:52 AM [facility] MPV 9.9 7.4 - 11.4 FL LAB HEMETOLOGY METHOD 12/06/2024 7:52 AM [facility] Neutrophils Relative 78.7(H) 44.0 - 74.0 % LAB HEMETOLOGY METHOD 12/06/2024 7:52 AM [facility] Lymphocytes Relative 13.0(L) 20.0 - 48.0 % LAB HEMETOLOGY METHOD 12/06/2024 7:52 AM [facility] Monocytes Relative 4.0 2.0 - 12.0 % LAB HEMETOLOGY METHOD 12/06/2024 7:52 AM [facility] Eosinophils Relative 3.2 0.0 - 6.0 % LAB HEMETOLOGY METHOD 12/06/2024 7:52 AM [facility] Basophils Relative 0.7 0.0 - 2.0 % LAB HEMETOLOGY METHOD 12/06/2024 7:52 AM [facility] Neutrophils Absolute 4.50 1.80 - 7.80 K/mcL LAB HEMETOLOGY METHOD 12/06/2024 7:52 AM [facility] Lymphocytes Absolute 0.74(L) 1.00 - 3.20 K/mcL LAB HEMETOLOGY METHOD 12/06/2024 7:52 AM [facility] Monocytes Absolute 0.23 0.00 - 0.80 K/mcL LAB HEMETOLOGY METHOD 12/06/2024 7:52 AM [facility] Eosinophils Absolute 0.18 0.00 - 0.50 K/mcL LAB HEMETOLOGY METHOD 12/06/2024 7:52 AM [facility] Basophils Absolute 0.04 0.00 - 0.20 K/mcL LAB HEMETOLOGY METHOD 12/06/2024 7:52 AM [facility] Blood Venous blood specimen / Unknown Venipuncture / Unknown 12/06/2024 7:47 AM EDT 12/06/2024 7:49 AM EDT us Dante O Nataly MD LAB BLOOD ORDERABLES Final Resu lt [facility] [address] [place] [address], [place] [phone] * (ABNORMAL) Comprehensive metabolic panel (12/06/2024 7:47 AM EDT) Sodium 136 135 - 145 mmol/L LAB CHEMISTRY METHOD 12/06/2024 8:31 AM [facility] Potassium 5.8(H) 3.5 - 5.1 mmol/L LAB CHEMISTRY METHOD 12/06/2024 8:31 AM [facility] Comment:Moderate Hemolysis m ay affect test result(s). Chloride 103 98 - 107 mmol/L LAB CHEMISTRY METHOD 12/06/2024 8:31 AM [facility] CO2 24 24 - 32 mmol/L LAB CHEMISTRY METHOD 12/06/2024 8:31 AM [facility] Anion Gap 9 5 - 14 LAB CHEMISTRY METHOD 12/06/2024 8:31 AM [facility] Glucose 132 70 - 199 mg/dL LAB CHEMISTRY METHOD 12/06/2024 8:31 AM [facility] BUN 8(L) 9 - 20 mg/dL LAB CHEMISTRY METHOD 12/06/2024 8:31 AM [facility] Creatinine 0.99 0.70 - 1.30 mg/dL LAB CHEMISTRY METHOD 12/06/2024 8:31 AM [facility] eGFR 99 >=60 mL/min/1. 73m2 LAB CHEMISTRY METHOD 12/06/2024 8:31 AM [facility] Comment:Calculation based on the Chronic Kidney Disease Epidemiology Collaboration (CKD-EPI) equation refit without adjustment for race. BUN/Creatinine Ratio 8.1(L) 12.0 - 20.0 LAB CHEMISTRY METHOD 12/06/2024 8:31 AM [facility] Calcium 9.5 8.4 - 10.2 mg/dL LAB CHEMISTRY METHOD 12/06/2024 8:31 AM [facility] AST (SGOT) 193(H) 5 - 40 unit/L LAB CHEMISTRY METHOD 12/06/2024 8:31 AM [facility] Comment:Moderate Hemolysis m ay affect test result(s). ALT (SGPT) 424(H) 7 - 52 unit/L LAB CHEMISTRY METHOD 12/06/2024 8:31 AM [facility] Alkaline Phosphatase 287(H) 34 - 104 unit/L LAB CHEMISTRY METHOD 12/06/2024 8:31 AM [facility] Total Protein 7.6 6.4 - 8.5 g/dL LAB CHEMISTRY METHOD 12/06/2024 8:31 AM [facility] Albumin 4.8 3.5 - 5.0 g/dL LAB CHEMISTRY METHOD 12/06/2024 8:31 AM [facility] Total Bilirubin 3.6(H) 0.3 - 1.0 mg/dL LAB CHEMISTRY METHOD 12/06/2024 8:31 AM [facility] Blood Venous blood specimen / Unknown Venipuncture / Unknown 12/06/2024 7:47 AM EDT 12/06/2024 7:49 AM EDT us Hardy Ingram MD LAB BLOOD ORDERABLES Final Resu lt [facility] [address] [place] [address], [place] [phone] from Last 3 Months Insurance [employer] Care Teams Surgery Attendant Relationship Specialty Start Date End Date Taylor Brownlee MD [address] [place] [address] PCP - General Adjunct Professor Of English 03/13/21
--- OUTSIDE RECORDS SUMMARY | 2024-12-13 13:35 | XMS_ITS | Clinical Summary ---
Author Organization [facility] Address [address] [place] [address] Care Team Providers Care Hydraulic Auto Jack Mechanic Name Role Phone Taylor Brownlee MD Primary Care Provider [phone] Allergies Active Allergy Reactions Criticality Noted Date [...] this topic Medical Devices Implanted Type Area Packaging Sales Consultant Device Identifier Shelf Expiration Date Model / Serial / Lot Mesh 3d Max 4.3x6.3 Lft Lrg Dimensional Prefrm Lft Ster N Crba-Davl [id number] - [id number] Implanted:Qty: 1 on 04/19/2021 by Denis Infante MD at [facility] Location Mesh Left: Inguinal CR BARD - DAVOL DIV 11/21/2025 [id number] / / [id number] Advance Directives For more information, please contact: [phone] Latest Code Status on File Code Status [...] following way: discussion with patient. Care Teams Hydraulic Auto Jack Mechanic Relationship Specialty Start Date End Date Taylor Brownlee MD [address] [place] [address] PCP - General Brand Coordinator 03/13/21
--- OUTSIDE RECORDS SUMMARY | 2024-12-13 13:35 | XMS_ITS | Clinical Summary ---
Author Organization [facility] Address [address] [place] [id number] Care Team Providers Care Wallpaper Remover Steam Name Role Phone Taylor Brownlee MD Primary Care Provider [phone] Allergies Active Allergy Reactions Criticality Noted Date [...] (09/09/2017): Added automatically from request for surgery [id number] Social History Tobacco Use Types Packs/Day Years [...] patient's age to complete this topic Insurance [facility] Care Teams Wallpaper Remover Steam Relationship Specialty Start Date End Date Taylor Brownlee MD [address] [place] [id number] PCP - General 07/31/21
== END 2024-12-13 13:39 | disposition home or self-care (01) ==
LOC: HO.HMCC 12:30
PROVIDERS: PCP Internal Medicine; Visit Provider Internal Medicine
DX: R79.89 Other specified abnormal findings of blood chemistry (principal)

== ENCOUNTER → 2024-12-13 12:30 | Outpatient (BNVA) | payer OTHER, SELFPAY | PROVIDERS: PCP Internal Medicine; Visit Provider Internal Medicine ==

== ENCOUNTER 2025-03-31 10:14 | Outpatient (AMB) | payer OTHER, SELFPAY ==
[2025-03-31 10:16] VITALS: BP 118/76; PULSE 77; RESP 18; TEMP 37; O2SAT 97; BMI 29.8
--- NOTE | 2025-03-31 10:16 | MHC.PC.OV ---
Vital Signs 03/31/25 10:16 Height 5 ft 9 in Weight 202 lb BMI 29.8 BP 118/76 Blood Pressure Location Rt brachial Position Sitting Respiration 18 Pulse 77 Pulse Source Pulse Oximeter Temp 98.6 F Temp Source Oral Pulse Oximetry (%) 97 Oxygen Delivery Method Room Air Intake Visit Reasons: Annual PE Allergies No Known Allergies Allergy (Verified 03/31/25 10:16) Medication List - Last Reconciled 03/31/25 by Taylor Brownlee MD No Known Home Meds Tobacco use date assessed: 03/31/25 Dental Screening Dental Screen Date: 03/31/25 Did you have a dental visit in the last 12 months?: Yes Did you have a dental problem in the last 6 months where you did not have access to dental care?: No Was dental information given to patient?: Patient has dentist HPI Annual PE HPI Details Pt presents for PE. Patient complains of chronic and persistent dysphagia to solids over the last few years getting slowly worse. Patient denies vomiting, food regurgitation heartburn odynophagia. He was diagnosed with eosinophilic esophagitis 4 years ago and is planning to scheduled follow-up appointment with his GI. [facility] Medical History Paresthesia of bilateral legs Lower back pain Thigh pain Inguinal hernia Umbilical hernia Annual physical exam Allergic rhinitis Eosinophilic esophagitis Surgical History History of hernia surgery Family History Father No problems noted. Mother Heart attack Sister Substance use disorder Social History Housing: House Patient Tobacco Use Status: Never used Tobacco e-Cigarette/Vaping Use: Never Used Second Hand Smoke Exposure: Yes service: No Current occupational status: employed Cognitive needs: No Hearing needs: No Vision needs: No Questionnaire PHQ-9 Over the last 2 weeks, how often have you been bothered by any of the following problems? 1. Little interest or pleasure in doing things: not at all 2. Feeling down, depressed, or hopeless: not at all 3. Trouble falling or staying asleep, or sleeping too much: not at all 4. Feeling tired or having little energy: not at all 5. Poor appetite or overeating: not at all 6. Feeling bad about yourself - or that you are a failure or have let yourself or your family down: not at all 7. Trouble concentrating on things, such as reading the newspaper or watching television: not at all 8. Moving or speaking so slowly that other people could have noticed. Or the opposite - being so fidgety or restless that you have been moving around a lot more than usual: not at all 9. Thoughts that you would be better off or of hurting yourself in some way: not at all Total score: 0 Depression Screening Interpretation: Negative Depression Screening Done: Yes 45381 - PHQ-9 Billing: Yes Source: Developed by Drs. Skyler Agustin, Chandrika Benítez, John Urrutia and colleagues, with an educational preston from [employer]. Thrive Questionnaire Date Thrive assessed: 03/31/25 I am a: Patient What is your living situation today?: I have a steady place to live Within the past 12 months, did the food you bought not last and you didn't have the money to get more?: Never true Within the past 12 months, did you worry whether your food would run out before you got money to buy more?: Never true Do you have trouble paying for medicines?: No Do you have trouble getting transportation to medical appointments?: No Do you have trouble paying your heating and electricity bill?: No Do you have trouble taking care of your child, family member or friend?: No Do you have trouble with day-to-day activities such as bathing, preparing meals, shopping, managing finances, etc.?: No Are you currently unemployed and looking for a job?: No Are you interested in more education?: No Please select the resources that you would like help with: None THRIVE Score: 0 AUDIT C Alcohol Use Questionnaire (AUDIT-C) 1. How often do you have a drink containing alcohol?: Never 3. How often do you have six or more drinks on one occasion?: Never Total Score: 0 KIZZY-7 AMB Questionnaire KIZZY-7 Date KIZZY - 7 assessed: 03/31/25 Feeling nervous, anxious, or on edge: 0 = Not at all Not being able to stop or control worryin = Not at all Worrying too much about different things: 0 = Not at all Trouble relaxin = Not at all Being so restless that it is hard to sit still: 0 = Not at all Becoming easily annoyed or irritable: 0 = Not at all Feeling afraid as if something awful might happen: 0 = Not at all Total KIZZY-7 score (0-4 normal; 5-9 mild; 10-14 moderate; 15-21 severe): 0 Source: Developed by Drs. Skyler Agustin, Chandrika Benítez, John Urrutia and colleagues, with an educational preston from [employer]. KIZZY-7 Assessment Billing KIZZY-7 Assessment Tool: KIZZY-7 Assessment 35578 Review of Systems Const All systems reviewed & are unremarkable except as noted in HPI and below Eyes Reports no additional complaints ENT Reports no additional complaints Card Reports no additional complaints Resp Reports no additional complaints GI Reports no additional complaints Reports no additional complaints Physical exam (Primary Care) Vital Signs: Last Vital Signs Temp 98.6 F 03/31/25 10:16 Pulse 77 03/31/25 10:16 Resp 18 03/31/25 10:16 BP 118/76 03/31/25 10:16 Pulse Ox 97 03/31/25 10:16 Oxygen Delivery Method Room Air 03/31/25 10:16 BMI result Body Mass Index 29.8 Tobacco/Smoking Status: Tobacco use Status Tobacco use date assessed 03/31/25 03/31/25 10:18 Patient Tobacco Use Status Never used Tobacco 03/31/25 10:18 e-Cigarette/Vaping Use Never Used 03/31/25 10:18 PHQ-9: PHQ-9 Score PHQ-9: Total score 0 03/31/25 10:40 Depression Screening Interpretation: Negative Thrive Assessment: Date of Thrive Assessment Date Thrive assessed 03/31/25 03/31/25 10:28 Const General: no acute distress HENMT Head: Yes normal to inspection Face and sinus: Yes normal facial exam Mouth: Normal oral and palatal mucosa present Throat: Yes posterior oropharynx normal Eyes General: appearance normal, both eyes and all related structures Neck Neck: Yes no lymphadenopathy and Yes supple Resp Effort & Inspection: normal respiratory effort Auscultation: clear to auscultation bilaterally Cardio Rhythm: regular rhythm Heart sounds: S1 normal heart sound present and S2 normal heart sound present GI Inspection: Yes normal to inspection Palpation (GI): Soft to palpation Percussion: Yes normal to percussion Auscultation: normal bowel sounds Coding Level of Care Code Est Pt Prev Care 40-64y(88637) Diagnoses Esophageal stricture K22.2 Annual physical exam Z00.00 Additional Codes KIZZY-7 Assessment Billing - KIZZY-7 Assessment Tool: KIZZY-7 Assessment 23934 ([id number]) PHQ-9 - 04988 - PHQ-9 Billing: Yes ([id number]) Assessment & Plan Assessment & Plan (1) Esophageal stricture: Comment: hx of EGD 2020 [facility] Code(s): K22.2 - Esophageal obstruction Category: Medical Plan: Patient will be referred to GI as soon as possible. He will call the office with the name of the specialist (2) Annual physical exam: Code(s): Z00.00 - Encounter for general adult medical examination without abnormal findings Category: Medical Plan: Well-balanced diet regular physical activity discussed with the patient. He will have a fasting blood work today
--- OUTSIDE RECORDS SUMMARY | 2025-03-31 11:17 | XMS_ITS | Clinical Summary ---
Author Organization [facility] Address [address] [place] [address] Phone Care Team Providers Care Director [employer] Name Role Phone Taylor Brownlee MD Primary Care Provider [phone] Allergies Active Allergy Reactions Criticality Noted Date Comments Egg Cough Low 09/09/2017 Other reaction(s): Cough Medications No known medications Active Problems No known active problems Surgical History Surgery Date Site/Laterality Comments UPPER GASTROINTESTINAL ENDOSCOPY PROCEDURE:UPPER GASTROINTESTINAL ENDOSCOPY;COMMENT:last one 3-4 years ago for difficulty swallowing UPPER GASTROINTESTINAL ENDOSCOPY 06/30/2016 N/A PROCEDURE:UPPER GASTROINTESTINAL ENDOSCOPY;COMMENT:Procedure: UPPER ENDOSCOPY-EGD; Surgeon: Markel Villanueva MD; Location: [facility]; Service: Gastroenterology; Laterality: N/A; WISDOM TOOTH EXTRACTION 2005 PROCEDURE:WISDOM TOOTH EXTRACTION;COMMENT:all four HERNIA REPAIR 04/19/2021 Left PROCEDURE:INGUINAL HERNIA REPAIR;COMMENT:Procedure: LAPAROSCOPY REPAIR HERNIA INGUINAL; Surgeon: Denis Infante MD; Location: [facility]; Service: General; Laterality: Left; Medical [...] 72 12/06/2024 11:23 AM EDT Temperature 37.4 C (99.4 F) 12/06/2024 11:23 AM EDT Respiratory Rate 17 12/06/2024 11:23 AM EDT [...] series) 01/13/2003 Cholesterol Screening (Lipid Panel) 06/24/2022 HIV Screening 06/24/2022 Hepatitis C Screening 06/24/2022 Social Influencers of Health Screening 06/24/2022 Depression Screening 07/27/2024 COVID-19 Vaccine (3 - 2024-2 6 season) 2025 01/21/2021, 12/30/2020 Influenza Vaccine (#1) 2025 HIB Vaccines Aged Out No longer [...] 5 Years) and At-Risk Patients (6 to 49 Years) Aged Out No longer eligible b ased on patient's age to complete this topic RSV Immunization Patients Under 20 months Aged Out No longer eligible b ased on patient's age to complete this topic Varicella Vaccines Aged Out No longer eligible based on patient's age to complete this topic Medical Devices Implanted Type Area Information Technology Intern Device Identifier Shelf Expiration Date Model / Serial / Lot Mesh 3d Max 4.3x6.3 Lft Lrg Dimensional Prefrm Lft Ster N Crba-Davl [id number] Implanted:Qty: 1 on 04/19/2021 by Denis Infante MD Implants Left: Inguinal CR BARD - DAVOL DIV 11/21/2025 [id number] / / [id number] Insurance [facility] Care Teams Director Enterprise Systems Relationship Specialty Start Date End Date Taylor Brownlee MD PCP - General Manager Hospital 03/13/21
--- OUTSIDE RECORDS SUMMARY | 2025-03-31 11:17 | XMS_ITS | Clinical Summary ---
Author Organization [facility] Address [address] [place] [address] Care Team Providers Care Sound Person Name Role Phone Taylor Brownlee MD Primary Care Provider [phone] Allergies Active Allergy Reactions Criticality Noted Date [...] 85 08/26/2023 2:26 AM EST Temperature 36.6 C (97.9 F) 08/26/2023 2:26 AM EST Respiratory Rate 16 08/26/2023 2:26 AM EST [...] (1 - Tdap) 01/13/2003 COVID-19 Vaccine (3 - 2023-2 5 season) 2024 01/21/2021, 12/30/2020 Influenza Vaccine (#1) 2025 Pneumococcal Vaccine Aged Out No long er eligible based on patient's age to complete this topic RSV Ped < 20 months Aged Out No longe r eligible based on patient's age to complete this topic Medical Devices Implanted Type Area Fireproof Door Assembler Device Identifier Shelf Expiration Date Model / Serial / Lot Mesh 3d Max 4.3x6.3 Lft Lrg Dimensional Prefrm Lft Ster N Crba-Davl [id number] - [id number] Implanted:Qty: 1 on 04/19/2021 by Denis Infante MD at [facility] Location Mesh Left: Inguinal CR BARD - DAVOL DIV 11/21/2025 [id number] / / [id number] Advance Directives For more information, please contact: [phone] Latest Code Status on File Code Status [...] following way: discussion with patient. Care Teams Sound Person Relationship Specialty Start Date End Date Taylor Brownlee MD [address] [facility] [place] [address] PCP - General Boiler Tester 03/13/21
--- OUTSIDE RECORDS SUMMARY | 2025-03-31 11:17 | XMS_ITS | Clinical Summary ---
Author Organization [facility] Address [address] [place] [id number] Care Team Providers Care Project Finance Analyst Name Role Phone Taylor Brownlee MD Primary Care Provider [phone] Allergies Active Allergy Reactions Criticality Noted Date [...] (09/09/2017): Added automatically from request for surgery [id number] Social History Tobacco Use Types Packs/Day Years [...] 62 09/09/2017 8:50 PM EST Temperature 37.7 C (99.9 F) 09/09/2017 8:00 PM EST Respiratory Rate 20 09/09/2017 8:50 PM EST [...] of 3 - 19+ 3-dose series) 01/13/2003 HPV Vaccines (1 - 3-dose SCD M series) 01/13/2011 COVID-19 Vaccine (3 - 2023-2 5 season) 2024 01/21/2021, 12/30/2020 Influenza Vaccine 02/24/2025 Pneumococcal Vaccine: Pediatric (0-5 Years) and At-Risk Patients (6 to 49 Years) Aged Out No longer eligible b ased on patient's age to complete this topic Insurance [facility] [place] [id number] Care Teams Project Finance Analyst Relationship Specialty Start Date End Date Taylor Brownlee MD [address] [place] [id number] PCP - General 07/31/21
--- OUTSIDE RECORDS SUMMARY | 2025-03-31 11:17 | XMS_ITS ---
[facility] Results Test Name/Text Value Interpretation Date Range Source Hgb Ur Ql Negative 12/06/2024 - [facility] Glucose Ur Ql Negative 12/06/2024 - [facility] Color Ur Yellow 12/06/2024 - [facility] Clarity Ur Clear 12/06/2024 - [facility] Nitrite Ur Ql Negative 12/06/2024 - [facility] pH Ur 6.0 pH 12/06/2024 5 - 8 [facility] Prot Ur Strip-mCnc Negative 12/06/2024 - [facility] Ketones Ur-mCnc Negative 12/06/2024 - [facility] Sp Gr Ur 1.01 12/06/2024 1.005 - 1.03 [facility] Leukocyte esterase Ur Ql Strip Negative 12/06/2024 - [facility] Glucose SerPl-mCnc 123.0 mg/dL 12/06/2024 70 - 199 [facility] eGFRcr SerPlBld CKD-EPI 2020 102.0 mL/min/1.73m2 12/06/2024 - [facility] Creat SerPl-mCnc 0.96 mg/dL 12/06/2024 0.7 - 1.3 C [facility] Potassium SerPl-sCnc 4.1 mmol/L 12/06/2024 3.5 - 5.1 [facility] Anion Gap SerPl Calc-sCnc 8.0 12/06/2024 5 - 14 [facility] BUN/Creat SerPl 7.3 Below low normal 12/06/2024 12 - 2 0 [facility] BUN SerPl-mCnc 7.0 mg/dL Below low normal 12/06/2024 9 - 20 [facility] Sodium SerPl-sCnc 139.0 mmol/L 12/06/2024 135 - 14 5 [facility] Calcium SerPl-mCnc 8.7 mg/dL 12/06/2024 8.4 - 10.2 [facility] CO2 SerPl-sCnc 25.0 mmol/L 12/06/2024 24 - 32 [facility] Chloride SerPl-sCnc 106.0 mmol/L 12/06/2024 98 - 107 [facility] Bilirub SerPl-mCnc 3.6 mg/dL Above high normal 12/06/2024 0.3 - 1 [facility] Sodium SerPl-sCnc 136.0 mmol/L 12/06/2024 135 - 14 5 [facility] ALP SerPl-cCnc 287.0 unit/L Above high normal 12/06/2024 34 - 104 [facility] Calcium SerPl-mCnc 9.5 mg/dL 12/06/2024 8.4 - 10.2 [facility] BUN/Creat SerPl 8.1 Below low normal 12/06/2024 12 - 2 0 [facility] Chloride SerPl-sCnc 103.0 mmol/L 12/06/2024 98 - 107 [facility] ALT SerPl-cCnc 424.0 unit/L Above high normal 12/06/2024 7 - 52 [facility] Albumin SerPl-mCnc 4.8 g/dL 12/06/2024 3.5 - 5 [facility] Creat SerPl-mCnc 0.99 mg/dL 12/06/2024 0.7 - 1.3 [facility] Prot SerPl-mCnc 7.6 g/dL 12/06/2024 6.4 - 8.5 [facility] Potassium SerPl-sCnc 5.8 mmol/L Above high normal 12/06/2024 3.5 - 5.1 [facility] Anion Gap SerPl Calc-sCnc 9.0 12/06/2024 5 - 14 [facility] CO2 SerPl-sCnc 24.0 mmol/L 12/06/2024 24 - 32 [facility] Glucose SerPl-mCnc 132.0 mg/dL 12/06/2024 70 - 199 [facility] BUN SerPl-mCnc 8.0 mg/dL Below low normal 12/06/2024 9 - 20 [facility] eGFRcr SerPlBld CKD-EPI 2020 99.0 mL/min/1.73m2 12/06/2024 - [facility] AST SerPl-cCnc 193.0 unit/L Above high normal 12/06/2024 5 - 40 [facility] Eosinophil NFr Bld Auto 3.2 % 12/06/2024 0 - 6 [facility] Basophils NFr Bld Auto 0.7 % 12/06/2024 0 - 2 [facility] Lymphocytes NFr Bld Auto 13.0 % Below low normal 12/06/2024 20 - 48 [facility] Platelet # Bld Auto 171.0 K/mcL 12/06/2024 150 - 450 [facility] Neutrophils # Bld Auto 4.5 K/mcL 12/06/2024 1.8 - 7.8 [facility] RBC Auto 90.1 FL 12/06/2024 78 - 100 [facility] MCHC RBC Auto-EntMCnc 33.9 g/dL 12/06/2024 32 - 36 [facility] PMV Bld Auto 9.9 FL 12/06/2024 7.4 - 11.4 [facility] Monocytes # Bld Auto 0.23 K/mcL 12/06/2024 0 - 0.8 [facility] Lymphocytes # Bld Auto 0.74 K/mcL Below low normal 12/06/2024 1 - 3.2 [facility] Neutrophils NFr Bld Auto 78.7 % Above high normal 12/06/2024 44 - 74 [facility] Hct VFr Bld Auto 47.5 % 12/06/2024 40 - 54 [facility] Hgb Bld-mCnc 16.1 g/dL 12/06/2024 13.5 - 18 [facility] Basophils # Bld Auto 0.04 K/mcL 12/06/2024 0 - 0.2 [facility] RBC # Bld Auto 5.27 M/mcL 12/06/2024 4.7 - 6 [facility] RDW RBC Auto 13.2 % 12/06/2024 12.1 - 17.7 [facility] Monocytes NFr Bld Auto 4.0 % 12/06/2024 2 - 12 [facility] WBC # Bld Auto 5.7 K/mcL 12/06/2024 4 - 10.5 [facility] Eosinophil # Bld Auto 0.18 K/mcL 12/06/2024 0 - 0.5 [facility] MCH RBC Qn Auto 30.6 pcg 12/06/2024 25 - 33 [facility] LACTATE SERPL SCNC 1.4 mmol/L Normal 08/26/2023 0.5 - [facility] Trop[facility] I SerPl HS-mCnc 4.0 ng/L Normal 08/26/2023 0 - 20 [facility] GLUCOSE BLDC GLUCOMTR MCNC 92.0 mg/dL Normal 08/26/2023 70 - 199 [facility] Glomerular filtration rate/1.73 sq M. predicted 88.0 Normal 08/26/2023 60 - [facility] CHLORIDE SERPL SCNC 104.0 mmol/L Normal 08/26/2023 98 - 107 [facility] CALCIUM SERPL MCNC 9.4 mg/dL Normal 08/26/2023 8.4 - 10.2 [facility] CREAT SERPL MCNC 1.1 mg/dL Normal 08/26/2023 0.7 - 1.3 [facility] GLUCOSE SERPL MCNC 102.0 mg/dL Normal 08/26/2023 70 - 199 [facility] POTASSIUM SERPL SCNC 3.5 mmol/L Normal 08/26/2023 3.5 - 5.1 [facility] SODIUM SERPL SCNC 140.0 mmol/L Normal 08/26/2023 135 - 14 5 [facility] BUN SERPL MCNC 11.0 mg/dL Normal 08/26/2023 9 - 20 [facility] HCO3 SER SCNC 28.0 mmol/L Normal 08/26/2023 24 - 32 [facility] ANION GAP SERPL SCNC 8.0 mmol/L Normal 08/26/2023 5 - 14 [facility] FLUAV RNA Nph Ql ALEJANDRO+non-probe NEGATIVE Normal 08/26/2023 [facility] RSV RNA Nph Ql ALEJANDRO+non-probe NEGATIVE Normal 08/26/2023 [facility] Service [facility] XXX-Imp Cepheid GeneXpert (RT-PCR) [facility] Normal 08/26/2023 [facility] FLUBV RNA Nph Ql ALEJANDRO+non-probe NEGATIVE Normal 08/26/2023 [facility] SPECIMEN SOURCE XXX NASOPHARYNGEAL Normal 08/26/2023 [facility] EOSINOPHIL NFR BLD AUTO 6.9 % Above high normal 08/26/2023 0 - 6 [facility] NUCLEATED RBC 0.0 % Normal 08/26/2023 0 - 1 [facility] PMV BLD [facility]O 9.5 fL Normal 08/26/2023 7.4 - 11.4 [facility] BASOPHILS IN BLOOD BY AUTOMATED COUNT 0.1 K/uL Normal 08/26/2023 0 - 0.2 [facility] IMMATURE GRANULOCYTE, ABSOLUTE 0.02 k/uL Normal 08/26/2023 - 0.1 [facility] PLATELET NO. BLD AUTO 201.0 K/uL Normal 08/26/2023 150 - 450 [facility] MCH RBC QN AUTO 31.0 pg Normal 08/26/2023 25 - 33 [facility] HGB BLD MCNC 14.6 g/dL Normal 08/26/2023 13.5 - 18 [facility] H EOSINOPHIL NO. BLD AUTO 0.5 K/uL Normal 08/26/2023 0 - 0.5 [facility] HCT VFR BLD AUTO 41.9 % Normal 08/26/2023 40 - 54 [facility] LYMPHOCYTES NO. BLD AUTO 3.6 K/uL Above high normal 08/26/2023 1 - 3.2 [facility] MCV RBC AUTO 89.0 fL Normal 08/26/2023 78 - 100 [facility] LYMPHOCYTES NFR BLD AUTO 49.5 % Above high normal 08/26/2023 20 - 48 [facility] MCHC RBC AUTO MCNC 34.8 g/dL Normal 08/26/2023 32 - 36 [facility] RBC NO. BLD AUTO 4.71 M/uL Normal 08/26/2023 4.7 - 6 [facility] BASOPHILS NFR BLD AUTO 0.8 % Normal 08/26/2023 0 - 2 [facility] MONOCYTES NFR BLD AUTO 10.1 % Normal 08/26/2023 2 - 12 [facility] NEUTROPHILS NO. BLD AUTO 2.3 K/uL Normal 08/26/2023 1.8 - 7.8 [facility] RDW RBC AUTO RTO 12.2 % Normal 08/26/2023 12.1 - 17.7 [facility] WBC NO. BLD AUTO 7.2 K/uL Normal 08/26/2023 4 - [facility].[address] [facility] NEUTROPHILS NFR BLD AUTO 32.4 % Below low normal 08/26/2023 44 - 74 [facility] IMMATURE GRANULOCYTE, PERCENT 0.3 % Normal 08/26/2023 0 - 1 [facility] MONOCYTES NO. BLD AUTO 0.7 K/uL Normal 08/26/2023 0 - 0.8 [facility] History of Medication Use Medication Directions Dispensed Refills Start Date End Date Status diphenhydrAMINE (BENADRYL) injection 25 mg 25 mg, intravenous, Once, On Thu12/06/24 at 0810, For 1 dose 12/07/19 completed famotidine (PF) (PEPCID) injection 20 mg 20 mg, intravenous, Administer over 2 Minutes, Once, On Thu12/06/24 at 0810, For 1 dose 12/07/19 completed methylPREDNISolone sodium succ (SOLU-Medrol) injection 125 mg 125 mg, intravenous, Once, On Thu12/06/24 at 0810, For 1 dose, Reconstitute each 125 mg vial with 2 mL sterile water for injection to a concentration of 62.5 mg/mL. 12/07/19 completed ondansetron (PF) (ZOFRAN) injection 4 mg 4 mg, intravenous, Once, On Thu12/06/24 at 0737, For 1 dose 12/07/19 completed sodium chloride 0.9 % bolus 1,000 mL 1,000 mL, intravenous, at 2,000 mL/hr, Administer over 30 Minutes, Once, On Thu12/06/24 at 0737, For 1 dose 12/07/19 completed predniSONE (DELTASONE) 50 mg tablet Take 1 tablet (50 mg total) by mouth 1 (one) time each day for 5 days. active Allergies Allergen Reaction Severity Comment Documented Date Source Statu s EGG COUGH Other reaction(s): Cough 09/09/2017 [facility] active Problems Problem Status Onset Date Problem Type Date of Resoluti on Source Viral illness active EncounterDiagnosisAct [facility] Abnormal liver enzymes active EncounterDiagnosisAct [facility] Rash active EncounterDiagnosisAct [facility] Weakness active EncounterDiagnosisAct [facility] Encounters Encounter Type Encounter Reason Primary Diagnosis Location Date Emergency dizziness Rash and other nonspecific skin eruption [facility] 12/06/2024 Emergency COVID-19 COVID-19 [facility] 08/26/19 24 Ambulatory Atopic dermatiti s, unspecified [facility] 07/31/2021 Care Team Organization Name Specialty Phone Email Start Date End Da te [facility] 12/06/2024 [facility] [employer] 12/06/2024 [facility] 08/26/2023 [facility] 08/26/2023 02/07/2025 [facility] 07/29 [employer] T[facility]OR BROWNLEE Primary Care 07/31/2021 03/14/20 [facility] 07/31/2021 07/31/19
== END 2025-03-31 11:26 | disposition home or self-care (01) ==
LOC: HO.HMCC 10:15
PROVIDERS: PCP Internal Medicine; Visit Provider Internal Medicine
DX: K22.2 Esophageal obstruction (principal); Z00.00 Encounter for general adult medical examination without abnormal findings

== ENCOUNTER 2025-03-31 10:14 | Outpatient (REF) | payer OTHER, SELFPAY ==
[2025-03-31 13:12] LABS: MANUAL DIFF FLAG NO
[2025-03-31 13:23] LABS: Appearance Urine Turbid; Glucose Urine UA Negative (Negative); PH 5.5 (5.0-9.0); Specific Gravity - Urine 1.025 (1.005-1.025)
[2025-03-31 13:32] LABS: Hematocrit 43.5 % (42.0-52.0); Hemoglobin 15.9 g/dl (14.0-18.0); Imm Gran Abs Auto 0.01 X10*3/uL (0.00-0.03); Imm Gran Pct Auto 0.2 % (0.0-0.4); Lymphocytes Absolute Auto 1.8 X10*3/uL (1.2-4.9); Mean Corpuscular HGB Conc 36.6 g/dl (31.0-36.0); Mean Corpuscular Hemoglobin 31.2 pg (27.0-33.0); Mean Corpuscular Volume 85.5 fL (80.0-98.0); NRBC Abs Auto 0.000 X10*3/uL (0.0-0.012); NRBC Pct Auto 0.0 /100WBC (0.0-0.2); Platelet Count 216 X10*3/uL (160-400); Red Blood Count 5.09 X10*6/uL (4.60-5.80); White Blood Count 6.2 X10*3/uL (4.8-10.8)
[2025-03-31 13:46] LABS: Alanine Aminotransferase 31 U/L (0-40); Albumin Level 5.2 g/dL (3.5-5.0); Alkaline Phosphatase 79 U/L (39-117); Anion Gap 11 (12-20); Aspartate Amino Transferase 26 U/L (5-37); Blood Urea Nitrogen 14 mg/dL (9-16); Calcium 9.7 mg/dL (8.4-10.2); Carbon Dioxide 27 mmol/L (22-29); Chloride 108 mmol/L (96-108); Cholesterol 197 mg/dL (<200); Estimated Glomerular Filt Rate > 60; HDL Cholesterol 38 mg/dL (>40); Potassium 4.4 mmol/L (3.3-5.1); Sodium 142 mmol/L (135-145); Total Protein 7.4 g/dL (6.5-8.0); Triglycerides 138 mg/dL (<150)
== END 2025-03-31 10:15 | disposition home or self-care (01) ==
LOC: HO.HMGCLDS 10:14
PROVIDERS: PCP Internal Medicine; Visit Provider Internal Medicine
DX: Z00.00 Encounter for general adult medical examination without abnormal findings (principal); K22.2 Esophageal obstruction
CPT/HCPCS: 36415; 80053; 80061; 81001; 85025; 96127